=== PATIENT | male | born 1975 | race Hispanic/Latino ===

== ENCOUNTER 2017-03-13 20:03 | Inpatient (IN) | payer OTHER, MEDICARE ==
[~2017-03-13] VITALS: Ht 170.2 cm; Wt 68.9 kg
[~2017-03-13 20:03] MED LIST: ABAC1TAB15 PO; ALPR-412 PO; LISI2.5T2 PO; MECL-129 PO; METF850T2 PO; ONDA8TAB12 PO; OXYC30TA89 PO; PANT40TA25 PO; PROC10TA13 PO; [UNRECOGNIZED DRUG - CODE] TD
[2017-03-13] MEDS ORDERED: ONDANSETRON HCL 4 MG/2 ML VIAL ONE ×2 (20:21→23:48)
[2017-03-13 20:40] LABS: APPEARANCE,URINE Clear (CLEAR); BILIRUBIN,URINE Negative (NEGATIVE); COLOR,URINE Yellow (YELLOW); GLUCOSE, URINE (UA) Negative (NEGATIVE); KETONES,URINE Negative (NEGATIVE); LEUKOCYTE ESTERASE ,URINE Negative (NEGATIVE); NITRATE,URINE Negative (NEGATIVE); OCCULT BLOOD,URINE Trace (NEGATIVE); PROTEIN,URINE Negative (NEGATIVE); UROBILINOGEN,URINE 0.2 mg/dL (0.2-1.0)
[2017-03-13 20:45] LABS: AMPHET/METH SCREEN,URINE NEGATIVE (NEGATIVE); BARBITURATE SCREEN, URINE NEGATIVE (NEGATIVE); BENZODIAZEPINES SCREEN,URINE NEGATIVE (NEGATIVE); CANNABINOID SCREEN,URINE NEGATIVE (NEGATIVE); COCAINE SCREEN,URINE NEGATIVE (NEGATIVE); OPIATE SCREEN,URINE NEGATIVE (NEGATIVE); PHENCYCLIDINE SCREEN,URINE NEGATIVE (NEGATIVE)
[2017-03-13 20:51] LABS: MEAN CORPUSCULAR HEMOGLOBIN 35.2 pg (27.0-33.0); MEAN CORPUSCULAR HGB CONC 36.7 g/dL (32.0-36.0); MEAN CORPUSCULAR VOLUME 95.7 fL (79-99); NUCLEATED RED BLOOD CELLS 0.3 % (0.0-0.19); PLATELET COUNT (AUTO) 29 K/uL (130-400); RED CELL DISTRIBUTION WIDTH 14.4 % (11.0-15.5); WHITE BLOOD COUNT (AUTO) 1.4 K/uL (4.8-10.8)
[2017-03-13 20:59] LABS: CARBON DIOXIDE 29 mmol/L (21-32); CHLORIDE 102 mmol/L (101-111); CREATININE 1.6 mg/dL (0.5-1.5); GLOMERULAR FILTR. RATE CALC 51 mL/min (>60); GLUCOSE,RANDOM 103 mg/dL (70-105); POTASSIUM 3.5 mmol/L (3.5-5.1); SODIUM SERUM 139 mmol/L (136-145); UREA NITROGEN, BLOOD 10 mg/dL (7-18)
[2017-03-13 21:01] LABS: INR 1.09 (0.85-1.15); PARTIAL THROMBOPLASTIN TIME 36.6 SEC (26.3-35.5); PROTHROMBIN TIME 11.4 SEC (9.6-11.6)
[2017-03-13 21:12] LABS: ALANINE AMINOTRANSFERASE 34 U/L (12-78); ALBUMIN 2.8 g/dL (3.5-5.0); ASPARTATE AMINOTRANSFERASE 20 U/L (10-37); BILIRUBIN,TOTAL 0.8 mg/dL (0.2-1.0); CREATINE KINASE MB < 0.5 ng/mL (0.5-3.6); CREATINE KINASE, TOTAL 15 U/L (21-232); LIPASE 162 U/L (114-286); TOTAL PROTEIN, SERUM 5.9 g/dL (6.0-8.3)
[2017-03-13 21:18] LABS: HEMATOCRIT 19.2 % (42-54)
[2017-03-13 21:27] LABS: LYMPHOCYTES % (MANUAL) 26 % (22-44); MAN.DIFF COMMENT-IMPRESSION MANUAL DIFFERENTIAL; MONOCYTES % (MANUAL) 20 % (2-9); REACTIVE LYMPHOCYTES 1 % (0-0); SEGMENTED NEUTROPHILS % 53 % (40-70)
[2017-03-13 21:28] LABS: PLATELET MORPHOLOGY COMMENT MARKED DECREASED
[2017-03-13 21:50] LABS: BACTERIA,URINE Few /HPF (None Seen)
[2017-03-13] MEDS ORDERED: SODIUM CHLORIDE 0.9% 1000ML 1,000 ML IV ONE ×2 (22:09→23:48)
[2017-03-13] MEDS ORDERED: TRAMADOL HCL 50 MG TABLET ONE (22:36)
[2017-03-13] MEDS ORDERED: METRONIDAZOLE 500 MG TABLET ONE (23:06)
[2017-03-14 00:08] VITALS: BP 121/74
[2017-03-14] MEDS ORDERED: VALA500T38 PO (00:44)
[2017-03-14] MEDS: SODIUM CHLORIDE 0.9% 1000ML 1,000 ML IV SCH ×3 (00:59→21:05)
[2017-03-14] MEDS: METRONIDAZOLE 500MG/100ML BAG 100 ML IV SCH ×3 (01:00→21:38)
[2017-03-14] MEDS ORDERED: HYDROMORPHONE HCL 2 MG/ML VIAL IVP PRN (02:15)
[2017-03-14] MEDS ORDERED: HYDRALAZINE HCL 20 MG/ML VIAL IV PRN (02:15)
[2017-03-14] MEDS ORDERED: MECLIZINE HCL 25 MG TABLET PO PRN (02:30)
[2017-03-14] MEDS ORDERED: NON-FORMULARY MEDICATION 1 EACH (Fentanyl 1 EACH) TD SCH (02:30)
[2017-03-14] MEDS ORDERED: ALPRAZOLAM 1 MG TAB PO PRN (02:30)
[2017-03-14] MEDS ORDERED: HYDROMORPHONE 1 MG/1 ML AMP ONE (02:30)
[2017-03-14] MEDS ORDERED: Prochlorperazine Maleate 10 MG PO PRN (02:30)
[2017-03-14 04:00] VITALS: BP 111/68
[2017-03-14 05:05] LABS: BASOPHILS % (AUTO) 0.7 % (0.0-5.0); LYMPHOCYTES % (AUTO) 27.4 % (21.0-51.0); MEAN CORPUSCULAR HEMOGLOBIN 35.4 pg (27.0-33.0); MEAN CORPUSCULAR HGB CONC 36.7 g/dL (32.0-36.0); MEAN CORPUSCULAR VOLUME 96.5 fL (79-99); MONOCYTES % (AUTO) 29.6 % (3.0-13.0); NEUTROPHILS % (AUTO) 42.3 % (40.0-77.0); NUCLEATED RED BLOOD CELLS 0.3 % (0.0-0.19); PLATELET COUNT (AUTO) 26 K/uL (130-400); RED BLOOD CELL COUNT(AUTO) 1.67 MIL/uL (4.50-6.20); RED CELL DISTRIBUTION WIDTH 14.4 % (11.0-15.5)
[2017-03-14 05:08] LABS: HEMATOCRIT 16.1 % (42-54)
[2017-03-14] MEDS ORDERED: SODIUM CHLORIDE 0.9% 250 ML IV ONE (05:13)
[2017-03-14 05:21] LABS: CREATININE 1.5 mg/dL (0.5-1.5); POTASSIUM 3.4 mmol/L (3.5-5.1)
[2017-03-14 07:30] VITALS: BP 123/74
[2017-03-14] MEDS: PANTOPRAZOLE SODIUM 40 MG TABLET.DR PO SCH (08:19)
[2017-03-14] MEDS: VALACYCLOVIR HCL 500 MG TABLET PO SCH (08:19)
[2017-03-14] MEDS: HYDROMORPHONE 1 MG/1 ML AMP IVP PRN ×2 (08:20→14:08)
[2017-03-14] MEDS: ONDANSETRON HCL 4 MG/2 ML VIAL IVP PRN ×2 (08:37→13:58)
[2017-03-14] MEDS: LISINOPRIL 2.5 MG TABLET PO SCH (08:37)
[2017-03-14] MEDS: ONDANSETRON ODT 4 MG TAB PO SCH (09:00)
[2017-03-14] MEDS: TRIUMEQ PO SCH (09:00)
[2017-03-14 11:00] VITALS: BP 122/74
[2017-03-14] MEDS ORDERED: POTASSIUM CHLORIDE 10% ELIXIR 20 MEQ/15 ML UDCUP PO PRN (11:30)
[2017-03-14] MEDS ORDERED: LIDOCAINE HCL-MPF 1% 2ML VIAL IVP PRN (11:30)
[2017-03-14] MEDS ORDERED: POTASSIUM CHLORIDE 20MEQ/100ML 100 ML IV PRN (11:30)
[2017-03-14] MEDS: FENTANYL 100 MCG/HR PATCH TD SCH (13:59)
[2017-03-14 16:00] VITALS: BP 114/72
[2017-03-14 19:32] LABS: OCCULT BLOOD STOOL SINGLE ONLY NEGATIVE (NEGATIVE)
[2017-03-14 20:00] VITALS: BP 122/75
[2017-03-14 20:29] LABS: HEMATOCRIT 25.8 % (42-54)
[2017-03-14] MEDS: HYDROMORPHONE HCL 2 MG/ML VIAL IVP PRN (20:34)
[2017-03-15] VITALS: BP 113/75
[2017-03-15] MEDS: HYDROMORPHONE HCL 2 MG/ML VIAL IVP PRN ×4 (02:30→20:30)
[2017-03-15 04:00] VITALS: BP 132/78
[2017-03-15] MEDS: SODIUM CHLORIDE 0.9% 1000ML 1,000 ML IV SCH ×2 (04:02→18:39)
[2017-03-15 05:07] LABS: HEMATOCRIT 27.9 % (42-54); MEAN CORPUSCULAR HEMOGLOBIN 31.7 pg (27.0-33.0); MEAN CORPUSCULAR HGB CONC 35.3 g/dL (32.0-36.0); MEAN CORPUSCULAR VOLUME 89.9 fL (79-99); NUCLEATED RED BLOOD CELLS 0.4 % (0.0-0.19); PLATELET COUNT (AUTO) 23 K/uL (130-400); WHITE BLOOD COUNT (AUTO) 1.4 K/uL (4.8-10.8)
[2017-03-15 05:21] LABS: CREATININE 1.7 mg/dL (0.5-1.5); MAGNESIUM 1.1 mg/dL (1.80-2.40); POTASSIUM 3.9 mmol/L (3.5-5.1)
[2017-03-15] MEDS: METRONIDAZOLE 500MG/100ML BAG 100 ML IV SCH ×3 (05:37→22:04)
[2017-03-15 05:46] LABS: LYMPHOCYTES % (MANUAL) 35 % (22-44); MAN.DIFF COMMENT-IMPRESSION MANUAL DIFFERENTIAL; MONOCYTES % (MANUAL) 4 % (2-9); PLATELET MORPHOLOGY COMMENT DECREASED; SEGMENTED NEUTROPHILS % 61 % (40-70)
[2017-03-15 07:30] VITALS: BP 125/76
[2017-03-15] MEDS: ONDANSETRON HCL 4 MG/2 ML VIAL IVP PRN ×2 (08:05→20:36)
[2017-03-15] MEDS: VALACYCLOVIR HCL 500 MG TABLET PO SCH (08:05)
[2017-03-15] MEDS: TRIUMEQ PO SCH (08:06)
[2017-03-15] MEDS: LISINOPRIL 2.5 MG TABLET PO SCH (08:06)
[2017-03-15] MEDS: PANTOPRAZOLE SODIUM 40 MG TABLET.DR PO SCH (08:06)
[2017-03-15] MEDS: ONDANSETRON ODT 4 MG TAB PO SCH (08:14)
[2017-03-15] MEDS ORDERED: TBO-FILGRASTIM 480 MCG/0.8 ML ML SQ SCH (09:00)
[2017-03-15 11:00] VITALS: BP 120/75
[2017-03-15] MEDS: LEVOFLOXACIN 500 MG TABLET PO SCH (11:49)
[2017-03-15] MEDS: MAGNESIUM 2GM PREMIX 50ML 50 ML IV SCH (11:50)
[2017-03-15 16:00] VITALS: BP 124/73
[2017-03-15 20:00] VITALS: BP 128/74
[2017-03-16] VITALS: BP 124/78
[2017-03-16] MEDS: HYDROMORPHONE HCL 2 MG/ML VIAL IVP PRN ×5 (02:41→23:05)
[2017-03-16] MEDS: ONDANSETRON HCL 4 MG/2 ML VIAL IVP PRN ×4 (02:41→23:05)
[2017-03-16] MEDS: SODIUM CHLORIDE 0.9% 1000ML 1,000 ML IV SCH ×2 (02:43→14:26)
[2017-03-16 04:00] VITALS: BP 112/65
[2017-03-16 05:36] LABS: BASOPHILS % (AUTO) 0.2 % (0.0-5.0); EOSINOPHILS % (AUTO) 0.1 % (0.0-8.0); HEMATOCRIT 24.6 % (42-54); LYMPHOCYTES % (AUTO) 15.2 % (21.0-51.0); MEAN CORPUSCULAR HEMOGLOBIN 33.1 pg (27.0-33.0); MEAN CORPUSCULAR HGB CONC 36.5 g/dL (32.0-36.0); MEAN CORPUSCULAR VOLUME 90.8 fL (79-99); MONOCYTES % (AUTO) 22.7 % (3.0-13.0); NEUTROPHILS % (AUTO) 61.8 % (40.0-77.0); NUCLEATED RED BLOOD CELLS 0.2 % (0.0-0.19); PLATELET COUNT (AUTO) 23 K/uL (130-400); RED BLOOD CELL COUNT(AUTO) 2.71 MIL/uL (4.50-6.20); RED CELL DISTRIBUTION WIDTH 17.2 % (11.0-15.5); WHITE BLOOD COUNT (AUTO) 3.1 K/uL (4.8-10.8)
[2017-03-16] MEDS: METRONIDAZOLE 500MG/100ML BAG 100 ML IV SCH ×3 (05:47→21:34)
[2017-03-16 05:48] LABS: ALBUMIN 2.4 g/dL (3.5-5.0); BILIRUBIN,TOTAL 0.9 mg/dL (0.2-1.0); CREATININE 1.6 mg/dL (0.5-1.5); MAGNESIUM 1.3 mg/dL (1.80-2.40); POTASSIUM 3.6 mmol/L (3.5-5.1); TOTAL PROTEIN, SERUM 5.1 g/dL (6.0-8.3)
[2017-03-16] MEDS: POTASSIUM CHLORIDE 20 MEQ ERTAB PO PRN (06:14)
[2017-03-16] MEDS: MAGNESIUM 2GM PREMIX 50ML 50 ML IV SCH (06:15)
[2017-03-16 07:30] VITALS: BP 115/74
[2017-03-16] MEDS: TRIUMEQ PO SCH (09:00)
[2017-03-16] MEDS: LEVOFLOXACIN 500 MG TABLET PO SCH (09:40)
[2017-03-16] MEDS: PANTOPRAZOLE SODIUM 40 MG TABLET.DR PO SCH (09:41)
[2017-03-16] MEDS: LISINOPRIL 2.5 MG TABLET PO SCH (09:41)
[2017-03-16] MEDS: VALACYCLOVIR HCL 500 MG TABLET PO SCH (09:42)
[2017-03-16 11:00] VITALS: BP 112/69
[2017-03-16] MEDS ORDERED: METR500T PO (13:18)
[2017-03-16] MEDS ORDERED: LEVO500T2 PO (13:18)
[2017-03-16] MEDS: ONDANSETRON ODT 4 MG TAB PO SCH (14:25)
[2017-03-16 16:00] VITALS: BP 110/68
[2017-03-16 20:00] VITALS: BP 124/73
[2017-03-17] VITALS: BP 120/57
[2017-03-17] MEDS: SODIUM CHLORIDE 0.9% 1000ML 1,000 ML IV SCH ×2 (03:31→13:20)
[2017-03-17] MEDS: HYDROMORPHONE HCL 2 MG/ML VIAL IVP PRN ×3 (03:35→13:15)
[2017-03-17 03:59] VITALS: BP 110/70
[2017-03-17] MEDS: METRONIDAZOLE 500MG/100ML BAG 100 ML IV SCH ×2 (05:19→13:14)
[2017-03-17 07:18] VITALS: BP 124/74
[2017-03-17] MEDS: ONDANSETRON ODT 4 MG TAB PO SCH (08:41)
[2017-03-17] MEDS: LISINOPRIL 2.5 MG TABLET PO SCH (08:41)
[2017-03-17] MEDS: VALACYCLOVIR HCL 500 MG TABLET PO SCH (08:41)
[2017-03-17] MEDS: LEVOFLOXACIN 500 MG TABLET PO SCH (08:41)
[2017-03-17] MEDS: PANTOPRAZOLE SODIUM 40 MG TABLET.DR PO SCH (08:42)
[2017-03-17] MEDS: TRIUMEQ PO SCH (08:42)
[2017-03-17 10:52] VITALS: BP 109/66
[2017-03-17] MEDS ORDERED: HEPARIN SODIUM/PF 100UNIT/ML 5ML SYRINGE IV SCH (11:45)
[2017-03-17] MEDS: POTASSIUM CHLORIDE 20 MEQ ERTAB PO PRN ×2 (12:25→15:16)
[2017-03-17] MEDS: ONDANSETRON HCL 4 MG/2 ML VIAL IVP PRN (13:15)
[2017-03-17] MEDS: FENTANYL 100 MCG/HR PATCH TD SCH (15:15)
== END 2017-03-17 16:00 | disposition home or self-care (01) | DRG 977 ==
LOC: EDH 20:03 → EDHIP 23:04 → 4BH 23:52
PROVIDERS: ADMIT Family Medicine; ATTEND Family Medicine
PROC: 30233N1 Transfusion of Nonautologous Red Blood Cells into Peripheral Vein, Percutaneous Approach (ICD-10-PCS; principal; 2017-03-14)
DX: A09 Infectious gastroenteritis and colitis, unspecified (principal); B20 Human immunodeficiency virus [HIV] disease; N19 Unspecified kidney failure; Z94.81 Bone marrow transplant status; C81.90 Hodgkin lymphoma, unspecified, unspecified site; Z94.84 Stem cells transplant status; I10 Essential (primary) hypertension; G89.29 Other chronic pain; T45.1X5A Adverse effect of antineoplastic and immunosuppressive drugs, initial encounter; Z90.49 Acquired absence of other specified parts of digestive tract; R16.1 Splenomegaly, not elsewhere classified; Z28.21 Immunization not carried out because of patient refusal
CPT/HCPCS: 36415; 36430; 80048; 80053; 80305; 81001; 82270; 82550; 82553; 83690; 83735; 84484; 85025; 85610; 85730; 86850; 86900; 86901; 86922; 87046; 87177; 87205; 87324; 87804; 88313; J1170; J1642; J2405; J3475; J3480; J3490; J7030; P9016

== ENCOUNTER 2017-05-18 20:24 | Emergency (ER) | payer OTHER, MEDICARE ==
[~2017-05-18 20:24] MED LIST changes: +LEVO500T2 PO; -METF850T2 PO; +METR500T PO; +VALA500T38 PO
[2017-05-18 21:00] LABS: BASOPHILS % (AUTO) 0.2 % (0.0-5.0); EOSINOPHILS % (AUTO) 1.6 % (0.0-8.0); HEMATOCRIT 27.2 % (42-54); LYMPHOCYTES % (AUTO) 36.3 % (21.0-51.0); MEAN CORPUSCULAR HEMOGLOBIN 35.8 pg (27.0-33.0); MEAN CORPUSCULAR HGB CONC 36.5 g/dL (32.0-36.0); MONOCYTES % (AUTO) 6.9 % (3.0-13.0); PLATELET COUNT (AUTO) 67 K/uL (130-400); RED BLOOD CELL COUNT(AUTO) 2.78 MIL/uL (4.50-6.20); WHITE BLOOD COUNT (AUTO) 7.2 K/uL (4.8-10.8)
[2017-05-18] MEDS ORDERED: ONDANSETRON ODT 4 MG TAB ONE (21:04)
[2017-05-18] MEDS ORDERED: SODIUM CHLORIDE 0.9% 1000ML 1,000 ML IV ONE (21:04)
[2017-05-18 21:12] LABS: CREATININE 2.5 mg/dL (0.5-1.5); POTASSIUM 3.1 mmol/L (3.5-5.1)
[2017-05-18 21:17] LABS: ALBUMIN 3.9 g/dL (3.5-5.0); BILIRUBIN,TOTAL 0.7 mg/dL (0.2-1.0); TOTAL PROTEIN, SERUM 7.4 g/dL (6.0-8.3)
[2017-05-18 21:19] LABS: APPEARANCE,URINE Clear (CLEAR); BILIRUBIN,URINE Negative (NEGATIVE); COLOR,URINE Yellow (YELLOW); GLUCOSE, URINE (UA) Negative (NEGATIVE); KETONES,URINE Negative (NEGATIVE); LEUKOCYTE ESTERASE ,URINE Trace (NEGATIVE); NITRATE,URINE Negative (NEGATIVE); OCCULT BLOOD,URINE Negative (NEGATIVE); PROTEIN,URINE Negative (NEGATIVE)
[2017-05-18 21:33] LABS: RBC,URINE 0-1 /HPF (0-1); WBC,URINE 0-1 /HPF (0-1)
[2017-05-18 21:34] LABS: BACTERIA,URINE Rare /HPF (None Seen); SQUAMOUS EPITHELIAL CELL,UR Few /LPF (0-2)
[2017-05-18] MEDS ORDERED: WATER FOR INJECTION,STERILE 20 ML VIAL ONE (22:34)
[2017-05-18] MEDS ORDERED: CEFTRIAXONE SODIUM 1 GM ONE (22:34)
[2017-05-18] MEDS ORDERED: POTASSIUM BICARB/CIT AC 25 MEQ TABLET.EFF ONE (23:14)
== END 2017-05-18 23:28 | disposition home or self-care (01) ==
LOC: EDH 20:24
DX: E87.6 Hypokalemia (principal); J18.9 Pneumonia, unspecified organism; D64.9 Anemia, unspecified; E11.9 Type 2 diabetes mellitus without complications; I10 Essential (primary) hypertension; Z88.6 Allergy status to analgesic agent; Z88.1 Allergy status to other antibiotic agents; Z85.72 Personal history of non-Hodgkin lymphomas; Z21 Asymptomatic human immunodeficiency virus [HIV] infection status
CPT/HCPCS: 36415; 71046; 80053; 81001; 85025; 87040 ×2; 87804 ×2; 96361; 96374; 99285; J0696; J7030

== ENCOUNTER 2018-04-09 01:20 | Inpatient (IN) | payer OTHER, MEDICARE ==
[~2018-04-09] VITALS: Ht 170.2 cm; Wt 74.4 kg
[~2018-04-09 01:20] MED LIST changes: -ABAC1TAB15 PO; +DARU1TAB PO; +DOLU50TA PO; -LEVO500T2 PO; -LISI2.5T2 PO; -MECL-129 PO; -METR500T PO; -VALA500T38 PO
[2018-04-09] MEDS ORDERED: ONDANSETRON HCL 4 MG/2 ML VIAL ONE (01:52)
[2018-04-09 01:59] LABS: BASOPHILS % (AUTO) 1.5 % (0.0-5.0); EOSINOPHILS % (AUTO) 1.6 % (0.0-8.0); HEMATOCRIT 34.7 % (42-54); LYMPHOCYTES % (AUTO) 6.4 % (21.0-51.0); MEAN CORPUSCULAR HEMOGLOBIN 33.6 pg (27.0-33.0); MEAN CORPUSCULAR HGB CONC 33.6 g/dL (32.0-36.0); MEAN CORPUSCULAR VOLUME 100.1 fL (79-99); MONOCYTES % (AUTO) 5.6 % (3.0-13.0); NEUTROPHILS % (AUTO) 84.9 % (40.0-77.0); PLATELET COUNT (AUTO) 106 K/uL (130-400); RED BLOOD CELL COUNT(AUTO) 3.47 MIL/uL (4.50-6.20); RED CELL DISTRIBUTION WIDTH 17.5 % (11.0-15.5); WHITE BLOOD COUNT (AUTO) 7.4 K/uL (4.8-10.8)
[2018-04-09 02:06] LABS: CARBON DIOXIDE 23 mmol/L (21-32); CHLORIDE 107 mmol/L (101-111); CREATININE 2.2 mg/dL (0.5-1.5); GLOMERULAR FILTR. RATE CALC 35 mL/min (>60); GLUCOSE,RANDOM 163 mg/dL (70-105); POTASSIUM 4.3 mmol/L (3.5-5.1); SODIUM SERUM 143 mmol/L (136-145); UREA NITROGEN, BLOOD 33 mg/dL (7-18)
[2018-04-09 02:06] LABS: APPEARANCE,URINE Clear (CLEAR); BILIRUBIN,URINE Negative (NEGATIVE); COLOR,URINE Yellow (YELLOW); GLUCOSE, URINE (UA) Negative (NEGATIVE); KETONES,URINE Negative (NEGATIVE); LEUKOCYTE ESTERASE ,URINE Negative (NEGATIVE); NITRATE,URINE Negative (NEGATIVE); OCCULT BLOOD,URINE Negative (NEGATIVE); PROTEIN,URINE Negative (NEGATIVE)
[2018-04-09 02:11] LABS: PARTIAL THROMBOPLASTIN TIME 29.4 SEC (26.3-35.5); PROTHROMBIN TIME 10.5 SEC (9.6-11.6)
[2018-04-09 02:17] LABS: ALANINE AMINOTRANSFERASE 35 U/L (12-78); ALBUMIN 3.8 g/dL (3.5-5.0); ASPARTATE AMINOTRANSFERASE 24 U/L (10-37); BILIRUBIN,TOTAL 0.6 mg/dL (0.2-1.0); CREATINE KINASE, TOTAL 27 U/L (21-232); MYOGLOBIN 31 ng/mL (10-92); TOTAL PROTEIN, SERUM 6.7 g/dL (6.0-8.3); TROPONIN I < 0.04 ng/mL (0.00-0.06)
[2018-04-09] MEDS ORDERED: ZOSYN 3.375GM+NS 50ML 50 ML IV ONE (02:33)
[2018-04-09] MEDS ORDERED: ACETAMINOPHEN EXTRA STRENGTH 500 MG TABLET ONE (02:33)
[2018-04-09] MEDS ORDERED: FENTANYL CITRATE PF 50 MCG/1 ML 2ML VIAL ONE (03:35)
[2018-04-09] MEDS ORDERED: METOCLOPRAMIDE 10 MG/2 ML VIAL ONE (04:43)
[2018-04-09] MEDS ORDERED: SODIUM CHLORIDE 0.9% 1000ML 1,000 ML IV ONE (08:16)
[2018-04-09] MEDS ORDERED: HYDROMORPHONE 1 MG/1 ML AMP ONE (12:05)
[2018-04-09 13:45] VITALS: BP 141/87
[2018-04-09] MEDS: ZOSYN 3.375GM+NS 50ML 50 ML IV SCH ×2 (14:58→21:41)
[2018-04-09] MEDS ORDERED: GABA-531 PO (15:05)
[2018-04-09] MEDS ORDERED: ATOR10 PO (15:05)
[2018-04-09] MEDS ORDERED: ALLO300T2 PO (15:05)
[2018-04-09] MEDS ORDERED: FENT-77 TD (15:17)
[2018-04-09] MEDS ORDERED: ONDA8TAB5 PO (15:17)
[2018-04-09] MEDS ORDERED: ONDANSETRON 4 MG TABLET PO PRN (15:30)
[2018-04-09] MEDS ORDERED: HYDROMORPHONE HCL 2 MG/ML VIAL IVP PRN (15:30)
[2018-04-09] MEDS ORDERED: NON-FORMULARY MEDICATION 1 EACH (Fentanyl 1 EACH) TD SCH (15:30)
[2018-04-09 16:00] VITALS: BP 139/82
[2018-04-09] MEDS: HYDROMORPHONE 1 MG/1 ML AMP IVP PRN ×2 (17:06→21:50)
[2018-04-09] MEDS: GABAPENTIN 300 MG CAPSULE PO SCH (17:14)
[2018-04-09] MEDS: SODIUM CHLORIDE 0.9% 1000ML 1,000 ML IV SCH (17:16)
[2018-04-09 19:25] VITALS: BP 105/64
[2018-04-09] MEDS: FENTANYL 100 MCG/HR PATCH TD PRN (19:59)
[2018-04-09] MEDS: ATORVASTATIN CALCIUM 20 MG TABLET PO SCH (21:41)
[2018-04-09] MEDS: ONDANSETRON HCL 4 MG/2 ML VIAL IVP PRN (21:44)
[2018-04-09 23:35] VITALS: BP 116/72
[2018-04-10] MEDS: OXYCODONE HCL 30 MG TABLET PO PRN ×4 (00:07→22:31)
[2018-04-10] MEDS: SODIUM CHLORIDE 0.9% 1000ML 1,000 ML IV SCH ×3 (00:44→22:32)
[2018-04-10] MEDS ORDERED: DiphenhydrAMINE HCL 50 MG/ML VIAL ONE (00:57)
[2018-04-10 03:00] VITALS: BP 150/81
[2018-04-10] MEDS: ZOSYN 3.375GM+NS 50ML 50 ML IV SCH ×3 (05:03→21:15)
[2018-04-10] MEDS: HYDROMORPHONE 1 MG/1 ML AMP IVP PRN ×5 (05:11→23:42)
[2018-04-10] MEDS: DiphenhydrAMINE HCL 50 MG/ML VIAL IV PRN ×3 (07:09→21:16)
[2018-04-10 08:00] VITALS: BP 114/74
[2018-04-10] MEDS: DARUNAVIR PO SCH (08:00)
[2018-04-10] MEDS: COBICISTAT PO SCH (08:00)
[2018-04-10] MEDS: **HM**(Dolutegravir Sodium (Tivicay) 50 MG PO SCH (08:06)
[2018-04-10] MEDS: PANTOPRAZOLE SODIUM 40 MG TABLET.DR PO SCH (08:06)
[2018-04-10] MEDS: GABAPENTIN 300 MG CAPSULE PO SCH ×3 (08:06→17:12)
[2018-04-10] MEDS ORDERED: PROCHLORPERAZINE MALEATE 10 MG PO PRN (09:00)
[2018-04-10] MEDS ORDERED: ONDANSETRON 8 MG PO SCH (09:00)
[2018-04-10] MEDS: ONDANSETRON HCL 4 MG/2 ML VIAL IVP PRN (09:49)
[2018-04-10] MEDS: ALLOPURINOL 300 MG TABLET PO SCH (09:52)
[2018-04-10 12:00] VITALS: BP 102/69
[2018-04-10 16:00] VITALS: BP 110/70
[2018-04-10 19:45] VITALS: BP 111/73
[2018-04-10] MEDS: ATORVASTATIN CALCIUM 20 MG TABLET PO SCH (21:15)
[2018-04-10 23:35] VITALS: BP 132/78
[2018-04-11 03:00] VITALS: BP 120/74
[2018-04-11] MEDS: DiphenhydrAMINE HCL 50 MG/ML VIAL IV PRN ×4 (03:22→23:25)
[2018-04-11] MEDS: OXYCODONE HCL 30 MG TABLET PO PRN ×2 (03:27→12:33)
[2018-04-11] MEDS: ZOSYN 3.375GM+NS 50ML 50 ML IV SCH ×3 (04:44→21:02)
[2018-04-11] MEDS: HYDROMORPHONE 1 MG/1 ML AMP IVP PRN ×5 (06:16→22:35)
[2018-04-11] MEDS: SODIUM CHLORIDE 0.9% 1000ML 1,000 ML IV SCH ×3 (07:00→23:26)
[2018-04-11] MEDS: COBICISTAT PO SCH (07:47)
[2018-04-11] MEDS: DARUNAVIR PO SCH (07:47)
[2018-04-11] MEDS: **HM**(Dolutegravir Sodium (Tivicay) 50 MG PO SCH (07:47)
[2018-04-11 08:34] VITALS: BP 102/67
[2018-04-11] MEDS: GABAPENTIN 300 MG CAPSULE PO SCH ×3 (09:38→17:06)
[2018-04-11] MEDS: PANTOPRAZOLE SODIUM 40 MG TABLET.DR PO SCH (09:38)
[2018-04-11] MEDS: VALACYCLOVIR HCL 500 MG TABLET PO SCH ×3 (09:38→21:02)
[2018-04-11] MEDS: ALLOPURINOL 300 MG TABLET PO SCH (09:38)
[2018-04-11] MEDS: ONDANSETRON HCL 4 MG/2 ML VIAL IVP PRN (09:42)
[2018-04-11 12:04] VITALS: BP 116/73
[2018-04-11 15:49] VITALS: BP 101/63
[2018-04-11] MEDS: ALPRAZOLAM 1 MG TAB PO PRN (17:13)
[2018-04-11 19:40] VITALS: BP 111/74
[2018-04-11] MEDS: ATORVASTATIN CALCIUM 20 MG TABLET PO SCH (21:02)
[2018-04-11 23:40] VITALS: BP 132/89
[2018-04-12] MEDS: SODIUM CHLORIDE 0.9% 1000ML 1,000 ML IV SCH ×4 (02:26→22:02)
[2018-04-12] MEDS: HYDROMORPHONE 1 MG/1 ML AMP IVP PRN ×6 (03:17→23:52)
[2018-04-12 03:40] VITALS: BP 103/67
[2018-04-12] MEDS: ZOSYN 3.375GM+NS 50ML 50 ML IV SCH ×3 (03:57→21:42)
[2018-04-12] MEDS: DiphenhydrAMINE HCL 50 MG/ML VIAL IV PRN ×4 (05:59→23:51)
[2018-04-12 07:00] VITALS: BP 119/72
[2018-04-12] MEDS: ONDANSETRON HCL 4 MG/2 ML VIAL IVP PRN ×2 (07:31→19:55)
[2018-04-12] MEDS: COBICISTAT PO SCH (08:00)
[2018-04-12] MEDS: DARUNAVIR PO SCH (08:00)
[2018-04-12] MEDS: GABAPENTIN 300 MG CAPSULE PO SCH ×3 (08:45→18:14)
[2018-04-12] MEDS: PANTOPRAZOLE SODIUM 40 MG TABLET.DR PO SCH (08:45)
[2018-04-12] MEDS: ALLOPURINOL 300 MG TABLET PO SCH (08:46)
[2018-04-12] MEDS: VALACYCLOVIR HCL 500 MG TABLET PO SCH ×3 (08:46→21:42)
[2018-04-12] MEDS: **HM**(Dolutegravir Sodium (Tivicay) 50 MG PO SCH (08:49)
[2018-04-12] MEDS: OXYCODONE HCL 30 MG TABLET PO PRN ×3 (08:49→18:14)
[2018-04-12 11:00] VITALS: BP 103/65
[2018-04-12] MEDS: ALPRAZOLAM 1 MG TAB PO PRN ×2 (11:57→19:55)
[2018-04-12] MEDS: DIPHENOXYLATE HCL/ATROPINE 2.5/0.025 MG TAB PO PRN ×2 (13:34→16:17)
[2018-04-12 16:00] VITALS: BP 128/72
[2018-04-12] MEDS: FENTANYL 100 MCG/HR PATCH TD PRN (18:15)
[2018-04-12 19:20] VITALS: BP 131/91
[2018-04-12] MEDS: ATORVASTATIN CALCIUM 20 MG TABLET PO SCH (19:55)
[2018-04-13 00:27] VITALS: BP 116/73
[2018-04-13] MEDS: ZOSYN 3.375GM+NS 50ML 50 ML IV SCH ×3 (04:42→21:14)
[2018-04-13 04:47] VITALS: BP 122/88
[2018-04-13] MEDS: SODIUM CHLORIDE 0.9% 1000ML 1,000 ML IV SCH ×3 (05:43→21:15)
[2018-04-13 08:00] VITALS: BP 129/85
[2018-04-13] MEDS: DARUNAVIR PO SCH (08:00)
[2018-04-13] MEDS: COBICISTAT PO SCH (08:00)
[2018-04-13] MEDS: VALACYCLOVIR HCL 500 MG TABLET PO SCH ×3 (08:47→21:15)
[2018-04-13] MEDS: GABAPENTIN 300 MG CAPSULE PO SCH ×3 (08:47→17:58)
[2018-04-13] MEDS: ONDANSETRON HCL 4 MG/2 ML VIAL IVP PRN ×3 (08:47→20:29)
[2018-04-13] MEDS: ALLOPURINOL 300 MG TABLET PO SCH (08:47)
[2018-04-13] MEDS: PANTOPRAZOLE SODIUM 40 MG TABLET.DR PO SCH (08:47)
[2018-04-13] MEDS: HYDROMORPHONE 1 MG/1 ML AMP IVP PRN ×4 (08:48→21:23)
[2018-04-13] MEDS: **HM**(Dolutegravir Sodium (Tivicay) 50 MG PO SCH (09:00)
[2018-04-13 11:04] VITALS: BP 128/74
[2018-04-13] MEDS: DiphenhydrAMINE HCL 50 MG/ML VIAL IV PRN ×2 (11:10→21:16)
[2018-04-13] MEDS: OXYCODONE HCL 30 MG TABLET PO PRN ×2 (11:11→15:30)
[2018-04-13] MEDS: DIPHENOXYLATE HCL/ATROPINE 2.5/0.025 MG TAB PO PRN (11:11)
[2018-04-13 12:54] LABS: BASOPHILS % (AUTO) 1.8 % (0.0-5.0); LYMPHOCYTES % (AUTO) 21.2 % (21.0-51.0); MEAN CORPUSCULAR HEMOGLOBIN 34.2 pg (27.0-33.0); MEAN CORPUSCULAR VOLUME 100.5 fL (79-99); MONOCYTES % (AUTO) 4.7 % (3.0-13.0); NEUTROPHILS % (AUTO) 70.3 % (40.0-77.0); PLATELET COUNT (AUTO) 83 K/uL (130-400); RED BLOOD CELL COUNT(AUTO) 3.18 MIL/uL (4.50-6.20); RED CELL DISTRIBUTION WIDTH 16.8 % (11.0-15.5); WHITE BLOOD COUNT (AUTO) 5.8 K/uL (4.8-10.8)
[2018-04-13 16:47] VITALS: BP 129/73
[2018-04-13 20:00] VITALS: BP 163/99
[2018-04-13] MEDS: ATORVASTATIN CALCIUM 20 MG TABLET PO SCH (21:15)
[2018-04-14] VITALS: BP 115/70
[2018-04-14] MEDS: OXYCODONE HCL 30 MG TABLET PO PRN ×3 (00:10→13:39)
[2018-04-14] MEDS ORDERED: ACET-2247 PO (00:17)
[2018-04-14] MEDS ORDERED: ACETAMINOPHEN 325 MG TAB PO PRN (00:30)
[2018-04-14] MEDS ORDERED: ACETAMINOPHEN 325 MG TAB ONE (01:14)
[2018-04-14] MEDS: HYDROMORPHONE 1 MG/1 ML AMP IVP PRN ×4 (01:22→15:51)
[2018-04-14] MEDS: DiphenhydrAMINE HCL 50 MG/ML VIAL IV PRN ×2 (03:13→09:31)
[2018-04-14 04:00] VITALS: BP 119/80
[2018-04-14 04:10] VITALS: BP 142/87
[2018-04-14] MEDS: ZOSYN 3.375GM+NS 50ML 50 ML IV SCH ×2 (06:32→12:51)
[2018-04-14] MEDS: DIPHENOXYLATE HCL/ATROPINE 2.5/0.025 MG TAB PO PRN (07:23)
[2018-04-14 08:00] VITALS: BP 149/88
[2018-04-14] MEDS: COBICISTAT PO SCH (08:00)
[2018-04-14] MEDS: DARUNAVIR PO SCH (08:00)
[2018-04-14] MEDS: **HM**(Dolutegravir Sodium (Tivicay) 50 MG PO SCH (09:00)
[2018-04-14] MEDS: ALLOPURINOL 300 MG TABLET PO SCH (09:31)
[2018-04-14] MEDS: PANTOPRAZOLE SODIUM 40 MG TABLET.DR PO SCH (09:31)
[2018-04-14] MEDS: VALACYCLOVIR HCL 500 MG TABLET PO SCH ×2 (09:31→13:39)
[2018-04-14] MEDS: GABAPENTIN 300 MG CAPSULE PO SCH ×2 (09:31→11:29)
[2018-04-14] MEDS: SODIUM CHLORIDE 0.9% 1000ML 1,000 ML IV SCH (09:43)
[2018-04-14 12:00] VITALS: BP 117/72
[2018-04-14] MEDS: ONDANSETRON HCL 4 MG/2 ML VIAL IVP PRN (12:51)
[2018-04-14 16:00] VITALS: BP 140/91
[2018-04-14] MEDS ORDERED: HEPARIN SODIUM/PF 100UNIT/ML 5ML SYRINGE IV SCH (18:45)
== END 2018-04-14 19:00 | disposition home or self-care (01) | DRG 976 ==
LOC: EDH 01:20 → OBSVTOIN 04:40 → EDHIP 04:40 → 3CH 14:24 → 3AH 04-13 09:08
PROVIDERS: ADMIT Internal Medicine Hematology & Oncology; ATTEND Internal Medicine Hematology & Oncology
DX: B20 Human immunodeficiency virus [HIV] disease (principal); A41.9 Sepsis, unspecified organism; C85.90 Non-Hodgkin lymphoma, unspecified, unspecified site; K52.9 Noninfective gastroenteritis and colitis, unspecified; I10 Essential (primary) hypertension
CPT/HCPCS: 36415; 71045; 74176; 80053; 81003; 82550; 83605; 83690; 83874; 84484; 85025; 85610; 85730; 87040; 87088; 87804; 93005; G0378; J1170; J1200; J1642; J2405; J2543; J2765; J3010; J7030

== ENCOUNTER 2018-04-21 21:54 | Emergency (ER) | payer OTHER, MEDICARE ==
[~2018-04-21 21:54] MED LIST changes: +ACET-2247 PO; +ALLO300T2 PO; +ATOR10 PO; +FENT-77 TD; +GABA-531 PO; +ONDA8TAB5 PO
[2018-04-21 23:28] LABS: BASOPHILS % (AUTO) 0.5 % (0.0-5.0); EOSINOPHILS % (AUTO) 1.6 % (0.0-8.0); HEMATOCRIT 32.5 % (42-54); LYMPHOCYTES % (AUTO) 11.6 % (21.0-51.0); MEAN CORPUSCULAR HEMOGLOBIN 34.2 pg (27.0-33.0); MEAN CORPUSCULAR HGB CONC 34.1 g/dL (32.0-36.0); MEAN CORPUSCULAR VOLUME 100.3 fL (79-99); MONOCYTES % (AUTO) 6.2 % (3.0-13.0); NEUTROPHILS % (AUTO) 80.1 % (40.0-77.0); PLATELET COUNT (AUTO) 114 K/uL (130-400); RED BLOOD CELL COUNT(AUTO) 3.24 MIL/uL (4.50-6.20); RED CELL DISTRIBUTION WIDTH 17.3 % (11.0-15.5); WHITE BLOOD COUNT (AUTO) 8.1 K/uL (4.8-10.8)
[2018-04-21] MEDS ORDERED: SODIUM CHLORIDE 0.9% 1000ML 1,000 ML IV ONE (23:28)
[2018-04-21 23:41] LABS: CREATININE 2.3 mg/dL (0.5-1.5); POTASSIUM 3.3 mmol/L (3.5-5.1)
[2018-04-21 23:45] LABS: ALBUMIN 3.9 g/dL (3.5-5.0); BILIRUBIN,TOTAL 0.6 mg/dL (0.2-1.0); TOTAL PROTEIN, SERUM 6.8 g/dL (6.0-8.3)
[2018-04-21 23:46] LABS: INR 0.99 (0.85-1.15); PARTIAL THROMBOPLASTIN TIME 28.8 SEC (26.3-35.5); PROTHROMBIN TIME 10.4 SEC (9.6-11.6)
[2018-04-21 23:50] LABS: RAPID GROUP A STREP NEGATIVE (NEGATIVE)
[2018-04-22 00:04] LABS: B-TYPE NATRIURETIC PEPTIDE 40 pg/mL (0-100)
[2018-04-22 00:13] LABS: APPEARANCE,URINE Clear (CLEAR); BILIRUBIN,URINE Negative (NEGATIVE); COLOR,URINE Yellow (YELLOW); GLUCOSE, URINE (UA) Negative (NEGATIVE); KETONES,URINE Negative (NEGATIVE); LEUKOCYTE ESTERASE ,URINE Negative (NEGATIVE); NITRATE,URINE Negative (NEGATIVE); OCCULT BLOOD,URINE Negative (NEGATIVE); PROTEIN,URINE Negative (NEGATIVE); UROBILINOGEN,URINE 0.2 mg/dL (0.2-1.0)
[2018-04-22] MEDS ORDERED: OSELTAMIVIR PHOSPHATE 75 MG CAP ONE (00:49)
[2018-04-23] MEDS ORDERED: PREN-64 PO (08:03)
[2018-04-23] MEDS ORDERED: ALPR2TAB7 PO (08:03)
[2018-04-23] MEDS ORDERED: VALA100027 PO (08:03)
[2018-04-23] MEDS ORDERED: TEMA15CA PO (08:03)
[2018-04-23] MEDS ORDERED: OSEL75CA17 PO (08:03)
[2018-04-23] MEDS ORDERED: DIPH25CA85 PO (15:52)
== END 2018-04-22 01:00 | disposition home or self-care (01) ==
LOC: EDH 21:54
DX: J10.1 Influenza due to other identified influenza virus with other respiratory manifestations (principal); R00.0 Tachycardia, unspecified; I10 Essential (primary) hypertension; E11.9 Type 2 diabetes mellitus without complications; Z90.49 Acquired absence of other specified parts of digestive tract; Z88.5 Allergy status to narcotic agent; Z88.6 Allergy status to analgesic agent; Z88.1 Allergy status to other antibiotic agents; Z94.81 Bone marrow transplant status
CPT/HCPCS: 36415; 71045; 80053; 81003; 83605; 83690; 83880; 84484; 85025; 85610; 85730; 87040 ×2; 87804 ×2; 87880; 93005; 99284; J7030

== ENCOUNTER 2018-10-27 04:16 | Emergency (ER) | payer OTHER, MEDICARE ==
[~2018-10-27 04:16] MED LIST changes: -ACET-2247 PO; -ALLO300T2 PO; -ALPR-412 PO; +ALPR2TAB7 PO; +BICT1TAB PO; -DARU1TAB PO; +DIPH25CA85 PO; -DOLU50TA PO; -ONDA8TAB12 PO; +PREN-64 PO; -PROC10TA13 PO; +RANI-643 PO; -[UNRECOGNIZED DRUG - CODE] TD
[2018-10-27 04:46] LABS: APPEARANCE,URINE Clear (CLEAR); BILIRUBIN,URINE Negative (NEGATIVE); COLOR,URINE Yellow (YELLOW); GLUCOSE, URINE (UA) Negative (NEGATIVE); KETONES,URINE Negative (NEGATIVE); LEUKOCYTE ESTERASE ,URINE Negative (NEGATIVE); NITRATE,URINE Negative (NEGATIVE); OCCULT BLOOD,URINE Negative (NEGATIVE); PH,URINE 5.5 (5.0-8.0); PROTEIN,URINE Negative (NEGATIVE)
[2018-10-27] MEDS ORDERED: SODIUM CHLORIDE 0.9% 1000ML 1,000 ML IV ONE (05:04)
[2018-10-27] MEDS ORDERED: ONDANSETRON HCL 4 MG/2 ML VIAL ONE (05:04)
[2018-10-27 05:08] LABS: HEMATOCRIT 29.7 % (42-54); LYMPHOCYTES % (AUTO) 8.8 % (21.0-51.0); MEAN CORPUSCULAR HEMOGLOBIN 33.3 pg (27.0-33.0); MEAN CORPUSCULAR VOLUME 100.8 fL (79-99); MONOCYTES % (AUTO) 3.5 % (3.0-13.0); NEUTROPHILS % (AUTO) 87.7 % (40.0-77.0); PLATELET COUNT (AUTO) 141 K/uL (130-400); RED BLOOD CELL COUNT(AUTO) 2.94 MIL/uL (4.50-6.20); RED CELL DISTRIBUTION WIDTH 16.5 % (11.0-15.5); WHITE BLOOD COUNT (AUTO) 11.3 K/uL (4.8-10.8)
[2018-10-27 05:19] LABS: CREATININE 2.1 mg/dL (0.5-1.5); POTASSIUM 4.5 mmol/L (3.5-5.1)
[2018-10-27 05:22] LABS: INR 1.02 (0.85-1.15); PARTIAL THROMBOPLASTIN TIME 29.6 SEC (26.3-35.5); PROTHROMBIN TIME 10.7 SEC (9.6-11.6)
[2018-10-27 05:23] LABS: ALBUMIN 3.8 g/dL (3.5-5.0); BILIRUBIN,TOTAL 0.4 mg/dL (0.2-1.0); TOTAL PROTEIN, SERUM 6.2 g/dL (6.0-8.3)
[2018-10-27] MEDS ORDERED: HALOPERIDOL LACTATE 5 MG/ML VIAL ONE (05:30)
[2018-10-27] MEDS ORDERED: LEVOFLOXACIN 500 MG TABLET ONE (06:34)
[2018-10-30] MEDS ORDERED: CHLO25TA23 PO (06:16)
== END 2018-10-27 07:04 | disposition home or self-care (01) ==
LOC: EDH 04:16
DX: A09 Infectious gastroenteritis and colitis, unspecified (principal); E86.0 Dehydration; R06.6 Hiccough; I10 Essential (primary) hypertension; Z21 Asymptomatic human immunodeficiency virus [HIV] infection status; Z85.72 Personal history of non-Hodgkin lymphomas; Z94.81 Bone marrow transplant status; Z90.49 Acquired absence of other specified parts of digestive tract; Z88.5 Allergy status to narcotic agent; Z88.1 Allergy status to other antibiotic agents; Z88.6 Allergy status to analgesic agent
CPT/HCPCS: 36415; 71045; 80053; 81003; 82150; 82550; 83690; 84484; 85025; 85610; 85730; 93005; 96361; 96374; 96375; 99285; J1630; J2405; J7030

== ENCOUNTER 2018-10-29 19:22 | Inpatient (IN) | payer OTHER, MEDICARE | END 2018-11-06 08:45 | disposition home or self-care (01) | LOC: EDH 19:22 → EDHIP 19:23 → 3DH 22:50 | DX: B20 Human immunodeficiency virus [HIV] disease (principal); A41.9 Sepsis, unspecified organism; C81.90 Hodgkin lymphoma, unspecified, unspecified site; J18.9 Pneumonia, unspecified organism; N17.9 Acute kidney failure, unspecified; Z94.84 Stem cells transplant status; E86.0 Dehydration; K52.9 Noninfective gastroenteritis and colitis, unspecified; R00.0 Tachycardia, unspecified ==

== ENCOUNTER 2019-06-01 10:26 | Emergency (ER) | payer OTHER, MEDICARE ==
[~2019-06-01 10:26] MED LIST changes: -ALPR2TAB7 PO; -ATOR10 PO; -DIPH25CA85 PO; -GABA-531 PO; -ONDA8TAB5 PO; -OXYC30TA89 PO; -PANT40TA25 PO; -PREN-64 PO; -RANI-643 PO
[2019-06-01] MEDS ORDERED: SULFAMETHOX-TMP DS 800/160 TAB ONE (10:50)
== END 2019-06-01 11:03 | disposition home or self-care (01) ==
LOC: EDH 10:26
DX: L02.412 Cutaneous abscess of left axilla (principal); Z88.5 Allergy status to narcotic agent; Z88.6 Allergy status to analgesic agent; Z88.2 Allergy status to sulfonamides

== ENCOUNTER 2019-07-30 13:20 | Inpatient (IN) | payer OTHER, MEDICARE ==
[~2019-07-30] VITALS: Ht 170.2 cm; Wt 59.0 kg
[2019-07-30 14:00] LABS: BASOPHILS % (AUTO) 0.1 % (0.0-5.0); EOSINOPHILS % (AUTO) 0.4 % (0.0-8.0); HEMATOCRIT 44.3 % (42-54); LYMPHOCYTES % (AUTO) 16.4 % (21.0-51.0); MEAN CORPUSCULAR HEMOGLOBIN 31.3 pg (27.0-33.0); MEAN CORPUSCULAR HGB CONC 33.4 g/dL (32.0-36.0); MEAN CORPUSCULAR VOLUME 93.7 fL (79-99); MONOCYTES % (AUTO) 9.7 % (3.0-13.0); NEUTROPHILS % (AUTO) 72.3 % (40.0-77.0); PLATELET COUNT (AUTO) 199 K/uL (130-400); RED BLOOD CELL COUNT(AUTO) 4.73 MIL/uL (4.50-6.20); RED CELL DISTRIBUTION WIDTH 13.4 % (11.0-15.5); WHITE BLOOD COUNT (AUTO) 11.1 K/uL (4.8-10.8)
[2019-07-30 14:08] LABS: CREATININE 3.1 mg/dL (0.5-1.5); POTASSIUM 3.7 mmol/L (3.5-5.1)
[2019-07-30 14:10] LABS: AMYLASE 100 U/L (25-115); LIPASE 133 U/L (114-286)
[2019-07-30 14:12] LABS: INR 0.99 (0.85-1.15); PARTIAL THROMBOPLASTIN TIME 34.5 SEC (26.3-35.5); PROTHROMBIN TIME 10.7 SEC (9.6-11.6)
[2019-07-30 14:13] LABS: ALBUMIN 3.1 g/dL (3.5-5.0); BILIRUBIN,TOTAL 0.5 mg/dL (0.2-1.0); TOTAL PROTEIN, SERUM 7.4 g/dL (6.0-8.3)
[2019-07-30] MEDS ORDERED: SODIUM CHLORIDE 0.9% 1000ML 1,000 ML IV ONE ×2 (15:01→15:11)
[2019-07-30] MEDS ORDERED: ONDANSETRON HCL 4 MG/2 ML VIAL ONE (15:11)
[2019-07-30] MEDS ORDERED: HYDROMORPHONE 1 MG/1 ML AMP ONE (15:12)
[2019-07-30] MEDS: SODIUM CHLORIDE 0.9% 1000ML 1,000 ML IV SCH (16:15)
[2019-07-30] MEDS: METRONIDAZOLE 500MG/100ML BAG 100 ML IVPB SCH (17:00)
[2019-07-30] MEDS ORDERED: DIPH1TAB24 PO (18:36)
[2019-07-30 18:44] VITALS: BP 113/76
[2019-07-30] MEDS: HYDROMORPHONE 1 MG/1 ML AMP IVP PRN ×2 (18:44→23:29)
[2019-07-30 20:11] VITALS: BP 99/62
[2019-07-30] MEDS: ONDANSETRON HCL 4 MG/2 ML VIAL IVP PRN (23:28)
[2019-07-30 23:53] VITALS: BP 100/58
[2019-07-31] MEDS: METRONIDAZOLE 500MG/100ML BAG 100 ML IVPB SCH ×3 (01:00→15:50)
[2019-07-31] MEDS ORDERED: DIPHENHYDRAMINE HCL 25 MG CAPSULE ONE (01:09)
[2019-07-31] MEDS ORDERED: DIPHENHYDRAMINE HCL 25 MG CAPSULE PO PRN (01:15)
[2019-07-31] MEDS: SODIUM CHLORIDE 0.9% 1000ML 1,000 ML IV SCH ×3 (01:43→20:55)
[2019-07-31 04:11] VITALS: BP 92/53
[2019-07-31] MEDS: HYDROMORPHONE 1 MG/1 ML AMP IVP PRN ×5 (05:44→23:44)
[2019-07-31] MEDS: ZOSYN 3.375GM+NS 50ML 50 ML IV SCH ×3 (07:39→23:33)
[2019-07-31 08:12] VITALS: BP 99/56
[2019-07-31 11:43] VITALS: BP 109/62
[2019-07-31 15:50] VITALS: BP 105/68
--- NOTE | 2019-07-31 17:16 | NUR ---
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 LIVES WITH PARTNER STEFFEN WHO WILL PROVIDE TRANSPORT, HAS MICHELLE BENITEZ CHAIR, [email or web address] [facility], HERE FOR DIARRHEA AND ABDMONAL PAIN- COMPLAINING ABOUT THE FOOD- WANTS OUTSIDE FOOD- [facility] IS NOT ACCEPTABLE. BRIEF DIET ED DONE- ADVISED THAT WHITE RICE IS GOOD FOR DIARRHEA. PT EMPHAISZES WHATS DIET CHANGED. WILL PASS ON DCP IS HOME Addendum: 07/31/19 at 1720 by CARA ROYAL RN CM Amended: Links added.
[2019-07-31] MEDS: ONDANSETRON HCL 4 MG/2 ML VIAL IVP PRN (18:21)
--- NOTE | 2019-07-31 19:50 | NUR ---
ASSESS PT COMPLAINTS OF ABDOMINAL PAINS. SHIFT ASSESSMENT DONE, PLEASE REFER TO CHART. MEDICATED WITH DILAUDID IV FOR PAINS. KEPT RESTED AND COMFORTABLE IN BED. CALL LIGHT WITHIN REACH. WILL RE-ASSESS PT. Addendum: 07/31/19 at 2120 by TROY INGRAM RN RN Amended: Links added.
[2019-07-31 20:00] VITALS: BP 105/66
--- NOTE | 2019-07-31 22:00 | NUR ---
ROUNDS PT RESTING WELL, NO CONCERNS VERBALIZED. KEPT COMFORTABLE. ENCOURAGED TO SLEEP. WILL MONITOR PT.
--- NOTE | 2019-07-31 23:44 | NUR ---
PAIN PT CALLS FOR PAIN MEDICATION, CLAIMS OF ABDOMINAL PAINS. MEDICATED WITH DILAUDID IV. KEPT RESTED AND COMFORTALBE IN BED. CALL LIGHT WITHIN REACH. WILL RE-ASSESS PT. Addendum: 08/01/19 at 0010 by TROY INGRAM RN RN Amended: Links added.
[2019-08-01 00:01] VITALS: BP 107/68
[2019-08-01] MEDS: ONDANSETRON HCL 4 MG/2 ML VIAL IVP PRN ×2 (00:28→15:30)
[2019-08-01] MEDS: METRONIDAZOLE 500MG/100ML BAG 100 ML IVPB SCH ×3 (00:28→18:19)
--- NOTE | 2019-08-01 04:00 | NUR ---
PAIN PCP IN TO CHECK V/S, STABLE. PT CLAIMS OF PAINS GENERALLY TO ABDOMEN AND KNEES. MEDICATED WITH DILAUDID IV. KEPT COMFORTABLE IN BED. WILL RE-ASSESS PT. Addendum: 08/01/19 at 0414 by TROY INGRAM RN RN Amended: Links added.
[2019-08-01] MEDS: HYDROMORPHONE 1 MG/1 ML AMP IVP PRN ×5 (04:02→20:02)
[2019-08-01 04:51] VITALS: BP 118/71
[2019-08-01] MEDS: ZOSYN 3.375GM+NS 50ML 50 ML IV SCH ×3 (05:46→22:49)
--- NOTE | 2019-08-01 05:46 | NUR ---
MEDS PT IS FAIRLY ASLEEP WHEN ATHLETIC COORDINATOR ENTERS ROOM BUT AWAKENS SOON THE DOOR OPENS. NO CONCERNS VERBALIZED. ENCOURAGED TO GO BACK TO SLEEP. DUE MEDS ADMINISTERED. FOR MORE CARE.
[2019-08-01 07:22] VITALS: BP 96/61
[2019-08-01] MEDS: SODIUM CHLORIDE 0.9% 1000ML 1,000 ML IV SCH ×2 (08:02→22:49)
[2019-08-01 10:59] VITALS: BP 98/64
[2019-08-01] MEDS ORDERED: DIPHENOXYLATE HCL/ATROPINE 2.5/0.025 MG TAB PO PRN (12:00)
[2019-08-01 13:00] LABS: HEMATOCRIT 32.6 % (42-54); MEAN CORPUSCULAR HEMOGLOBIN 31.5 pg (27.0-33.0); MEAN CORPUSCULAR HGB CONC 32.2 g/dL (32.0-36.0); MEAN CORPUSCULAR VOLUME 97.9 fL (79-99); PLATELET COUNT (AUTO) 105 K/uL (130-400); RED BLOOD CELL COUNT(AUTO) 3.33 MIL/uL (4.50-6.20); RED CELL DISTRIBUTION WIDTH 13.6 % (11.0-15.5)
[2019-08-01 14:00] LABS: LYMPHOCYTES % (MANUAL) 32 % (22-44); MONOCYTES % (MANUAL) 8 % (2-9); SEGMENTED NEUTROPHILS % 60 % (40-70)
[2019-08-01 14:01] LABS: MAN.DIFF COMMENT-IMPRESSION MANUAL DIFFERENTIAL
[2019-08-01 14:05] LABS: PLATELET MORPHOLOGY COMMENT SLIGHTLY DECREASED
--- NOTE | 2019-08-01 15:05 | NUR ---
RD UPDATE RD NOTIFIED OF PT WITH [employer] AND PICKY EATER. RD CONTACTED PT VIA PHONE TO REVIEW FOOD PREFERENCES. PT LISTED FOODS DISLIKED BUT ALSO DISLIKES "FOODS WITH NO FLAVOR". PT DESIRES TO BRING FOOD FROM HOME. IF NOT, THREATENED TO LEAVE AMA. RD OFFERED SANDWICH WITH ENSURE. PT AGREED FOR NOW BUT STATES NOT SUFFICIENT AND WOULD PREFER TO GO HOME. PT SERVICES TO CALL PT PRIOR TO MEAL SERVICE. RD ENCOURAGED PT TO NOTIFY ADDITIONAL CONCERNS ARISE.
[2019-08-01 15:41] VITALS: BP 109/69
[2019-08-01 21:04] VITALS: BP 119/80
--- NOTE | 2019-08-01 22:01 | NUR ---
2139: I called answering service, was placed on hold till 2149. I spoke to regarding patient's complain of Dilaudid not lasting the full 4 hours. I received orders for Dilaudid 1 mg IVP every 3 hours as needed for severe pain. Patient made aware of new orders verbalized understanding.
[2019-08-01] MEDS ORDERED: HYDROMORPHONE 1 MG/1 ML AMP ONE (22:45)
[2019-08-02 00:29] VITALS: BP 121/75
[2019-08-02] MEDS ORDERED: HYDROMORPHONE 1 MG/1 ML AMP ONE ×2 (01:57→05:19)
[2019-08-02] MEDS: METRONIDAZOLE 500MG/100ML BAG 100 ML IVPB SCH ×3 (02:03→18:54)
[2019-08-02] MEDS: SODIUM CHLORIDE 0.9% 1000ML 1,000 ML IV SCH ×3 (04:12→22:45)
[2019-08-02 04:40] VITALS: BP 117/73
[2019-08-02] MEDS: ZOSYN 3.375GM+NS 50ML 50 ML IV SCH ×3 (07:20→22:42)
[2019-08-02 07:30] VITALS: BP 114/73
[2019-08-02] MEDS: ONDANSETRON HCL 4 MG/2 ML VIAL IVP PRN ×2 (08:22→11:51)
[2019-08-02] MEDS: HYDROMORPHONE 1 MG/1 ML AMP IVP PRN ×5 (08:22→22:45)
[2019-08-02 11:00] VITALS: BP 100/65
[2019-08-02 16:00] VITALS: BP 102/71
[2019-08-02 20:29] VITALS: BP 112/73
[2019-08-03 00:10] VITALS: BP 108/67
[2019-08-03] MEDS: SODIUM CHLORIDE 0.9% 1000ML 1,000 ML IV SCH (00:15)
[2019-08-03] MEDS: METRONIDAZOLE 500MG/100ML BAG 100 ML IVPB SCH ×2 (00:16→10:17)
[2019-08-03] MEDS: HYDROMORPHONE 1 MG/1 ML AMP IVP PRN ×3 (03:55→10:44)
[2019-08-03 04:00] VITALS: BP 105/70
[2019-08-03] MEDS: ZOSYN 3.375GM+NS 50ML 50 ML IV SCH (06:35)
[2019-08-03 08:00] VITALS: BP 115/72
[2019-08-03] MEDS: ONDANSETRON HCL 4 MG/2 ML VIAL IVP PRN (08:07)
--- NOTE | 2019-08-03 12:45 | NUR ---
Discharge instructions, medications and follow up appointments reviewed. Patient verbalized understanding of instructions. Pending call back from Dr. Gregory's office for appointment time. Per patient, doesn't want to wait for call back with appointment time and will call office for appointment. Per Dr. Gregory, will transmit anti-nausea medication to patient's pharmacy. PIV to LFA removed, bleeding controlled, and dressing applied. Patient to notify staff once family arrives to transport home.
== END 2019-08-03 13:00 | disposition home or self-care (01) | DRG 975 ==
LOC: EDH 13:20 → EDHIP 15:05 → 3AH 18:01
PROVIDERS: ADMIT Internal Medicine Hematology & Oncology; ATTEND Internal Medicine Hematology & Oncology
DX: B20 Human immunodeficiency virus [HIV] disease (principal); A41.9 Sepsis, unspecified organism; A04.72 Enterocolitis due to Clostridium difficile, not specified as recurrent; C81.90 Hodgkin lymphoma, unspecified, unspecified site; N17.9 Acute kidney failure, unspecified; Z94.84 Stem cells transplant status; R64 Cachexia; N18.9 Chronic kidney disease, unspecified; K52.9 Noninfective gastroenteritis and colitis, unspecified; E86.0 Dehydration; Z85.72 Personal history of non-Hodgkin lymphomas; Z88.5 Allergy status to narcotic agent; Z88.1 Allergy status to other antibiotic agents; Z88.8 Allergy status to other drugs, medicaments and biological substances; Z68.20 Body mass index [BMI] 20.0-20.9, adult
CPT/HCPCS: 36415; 71045; 74176; 80053; 82150; 82270; 83690; 85025; 85610; 85730; 87324; 87486; 87581; 87633; 87635; 87798; G0378; J1170; J2405; J2543; J3490; J7030; Q0163

== ENCOUNTER 2020-06-28 11:13 | Inpatient (IN) | payer OTHER, MEDICARE ==
[~2020-06-28] VITALS: Ht 172.7 cm; Wt 59.0 kg
[~2020-06-28 11:13] MED LIST changes: +DIPH1TAB24 PO
[2020-06-28 11:40] LABS: APPEARANCE,URINE Clear (CLEAR); BILIRUBIN,URINE Negative (NEGATIVE); COLOR,URINE Yellow (YELLOW); GLUCOSE, URINE (UA) Negative (NEGATIVE); KETONES,URINE Negative (NEGATIVE); LEUKOCYTE ESTERASE ,URINE Negative (NEGATIVE); NITRATE,URINE Negative (NEGATIVE); OCCULT BLOOD,URINE Negative (NEGATIVE); PH,URINE 5.5 (5.0-8.0); PROTEIN,URINE Negative (NEGATIVE); UROBILINOGEN,URINE 0.2 mg/dL (0.2-1.0)
[2020-06-28 11:56] LABS: BASOPHILS % (AUTO) 0.2 % (0.0-5.0); EOSINOPHILS % (AUTO) 0.4 % (0.0-8.0); HEMATOCRIT 34.8 % (42-54); LYMPHOCYTES % (AUTO) 16.7 % (21.0-51.0); MEAN CORPUSCULAR HEMOGLOBIN 31.5 pg (27.0-33.0); MEAN CORPUSCULAR HGB CONC 33.3 g/dL (32.0-36.0); MEAN CORPUSCULAR VOLUME 94.6 fL (79-99); MONOCYTES % (AUTO) 5.8 % (3.0-13.0); NEUTROPHILS % (AUTO) 76.2 % (40.0-77.0); PLATELET COUNT (AUTO) 143 K/uL (130-400); RED BLOOD CELL COUNT(AUTO) 3.68 MIL/uL (4.50-6.20); RED CELL DISTRIBUTION WIDTH 13.7 % (11.0-15.5); WHITE BLOOD COUNT (AUTO) 9.8 K/uL (4.8-10.8)
[2020-06-28 12:12] LABS: INR 1.01 (0.85-1.15)
[2020-06-28 12:13] LABS: PARTIAL THROMBOPLASTIN TIME 27.9 SEC (26.3-35.5)
[2020-06-28 12:18] LABS: CARBON DIOXIDE 24 mmol/L (21-32); CHLORIDE 103 mmol/L (101-111); CREATININE 1.7 mg/dL (0.5-1.5); GLOMERULAR FILTR. RATE CALC 47 mL/min (>60); GLUCOSE,RANDOM 96 mg/dL (70-105); POTASSIUM 4.3 mmol/L (3.5-5.1); SODIUM SERUM 136 mmol/L (136-145); UREA NITROGEN, BLOOD 22 mg/dL (7-18)
[2020-06-28 12:26] LABS: ALANINE AMINOTRANSFERASE 38 U/L (12-78); ALBUMIN 3.4 g/dL (3.5-5.0); ASPARTATE AMINOTRANSFERASE 22 U/L (10-37); BILIRUBIN,TOTAL 0.4 mg/dL (0.2-1.0); CREATINE KINASE, TOTAL 65 U/L (21-232); MYOGLOBIN 52 ng/mL (10-92); TOTAL PROTEIN, SERUM 7.4 g/dL (6.0-8.3); TROPONIN I < 0.04 ng/mL (0.00-0.06)
[2020-06-28 12:56] LABS: B-TYPE NATRIURETIC PEPTIDE 65 pg/mL (0-100)
[2020-06-28] MEDS ORDERED: ONDANSETRON 4MG INJ ONE (12:57)
[2020-06-28] MEDS ORDERED: ACETAMINOPHEN 325 MG TAB ONE (12:57)
[2020-06-28] MEDS ORDERED: 0.9%NACL 1000ML 1,000 ML IV ONE ×2 (12:58→16:29)
[2020-06-28] MEDS: 0.9%NACL 1000ML 1,000 ML IV SCH (15:45)
[2020-06-28] MEDS: CEFTRIAXONE 1G VIAL IVP SCH (16:00)
[2020-06-28] MEDS ORDERED: CEFTRIAXONE 1G VIAL ONE (16:28)
[2020-06-28] MEDS ORDERED: AZITHROMYCIN 500MG+NS 250ML 250 ML IV ONE (16:28)
[2020-06-28] MEDS ORDERED: ALBUTEROL INHALER 90MCG/INH IH ONE (16:28)
[2020-06-28] MEDS: AZITHROMYCIN 500MG+NS 250ML 250 ML IV SCH (16:30)
[2020-06-28] MEDS: IPRATROPIUM/ALBUTEROL SULFATE 3 ML SOLUTION IH SCH ×2 (18:34→22:26)
[2020-06-28 20:00] VITALS: BP 113/69
[2020-06-28] MEDS: FENTANYL 100 MCG/HR PATCH TD SCH (20:15)
[2020-06-28] MEDS ORDERED: ALBUHFA IH (20:30)
[2020-06-28] MEDS ORDERED: FENTANYL 100 MCG/HR PATCH TD ONE (20:35)
[2020-06-28] MEDS ORDERED: OXYCODONE HCL 30 MG TABLET PO ONE (20:35)
[2020-06-28] MEDS ORDERED: DiphenhydrAMINE HCL 50 MG/ML VIAL ONE (22:05)
[2020-06-28] MEDS ORDERED: ONDANSETRON 4MG INJ IVP PRN (22:15)
[2020-06-28] MEDS ORDERED: DiphenhydrAMINE HCL 50 MG/ML VIAL IV PRN (22:15)
[2020-06-29] VITALS: BP 144/75
[2020-06-29] MEDS: 0.9%NACL 1000ML 1,000 ML IV SCH ×3 (01:45→20:01)
[2020-06-29] MEDS: IPRATROPIUM/ALBUTEROL SULFATE 3 ML SOLUTION IH SCH ×6 (02:02→23:56)
[2020-06-29] MEDS: OXYCODONE HCL 30 MG TABLET PO PRN ×3 (02:06→10:28)
[2020-06-29 04:00] VITALS: BP 96/51
[2020-06-29 07:33] VITALS: BP 89/54
[2020-06-29 11:13] VITALS: BP 106/63
[2020-06-29] MEDS: CEFTRIAXONE 1G VIAL IVP SCH (15:38)
[2020-06-29] MEDS: AZITHROMYCIN 500MG+NS 250ML 250 ML IV SCH (15:39)
[2020-06-29] MEDS: ONDANSETRON 4MG INJ IVP PRN ×2 (15:39→20:01)
[2020-06-29] MEDS: HYDROMORPHONE 1 MG INJ IVP PRN ×2 (15:39→20:01)
[2020-06-29 16:12] VITALS: BP 109/70
[2020-06-29] MEDS: DiphenhydrAMINE HCL 50 MG/ML VIAL IV PRN ×2 (17:36→22:27)
[2020-06-29 20:00] VITALS: BP 141/86
[2020-06-30] VITALS (8 sets, daily range): BP systolic 100–115; BP diastolic 55–77
[2020-06-30] MEDS: ONDANSETRON 4MG INJ IVP PRN ×4 (00:55→21:21)
[2020-06-30] MEDS: HYDROMORPHONE 1 MG INJ IVP PRN ×4 (00:55→21:22)
[2020-06-30] MEDS: IPRATROPIUM/ALBUTEROL SULFATE 3 ML SOLUTION IH SCH ×6 (02:49→22:10)
[2020-06-30 05:51] LABS: BASOPHILS % (AUTO) 0.2 % (0.0-5.0); EOSINOPHILS % (AUTO) 0.7 % (0.0-8.0); HEMATOCRIT 31.4 % (42-54); MEAN CORPUSCULAR HEMOGLOBIN 31.7 pg (27.0-33.0); MEAN CORPUSCULAR HGB CONC 33.1 g/dL (32.0-36.0); MEAN CORPUSCULAR VOLUME 95.7 fL (79-99); MONOCYTES % (AUTO) 7.6 % (3.0-13.0); NEUTROPHILS % (AUTO) 58.2 % (40.0-77.0); PLATELET COUNT (AUTO) 142 K/uL (130-400); RED BLOOD CELL COUNT(AUTO) 3.28 MIL/uL (4.50-6.20); RED CELL DISTRIBUTION WIDTH 13.8 % (11.0-15.5); WHITE BLOOD COUNT (AUTO) 6.1 K/uL (4.8-10.8)
[2020-06-30 06:18] LABS: BILIRUBIN,TOTAL 0.3 mg/dL (0.2-1.0); CREATININE 1.8 mg/dL (0.5-1.5); POTASSIUM 4.5 mmol/L (3.5-5.1); TOTAL PROTEIN, SERUM 6.7 g/dL (6.0-8.3)
[2020-06-30] MEDS: DiphenhydrAMINE HCL 50 MG/ML VIAL IV PRN ×3 (06:29→19:51)
[2020-06-30] MEDS: 0.9%NACL 1000ML 1,000 ML IV SCH ×2 (07:45→17:23)
[2020-06-30] MEDS: AZITHROMYCIN 500MG+NS 250ML 250 ML IV SCH (16:55)
[2020-06-30] MEDS: CEFTRIAXONE 1G VIAL IVP SCH (16:55)
[2020-07-01] MEDS: DiphenhydrAMINE HCL 50 MG/ML VIAL IV PRN ×6 (00:16→23:48)
[2020-07-01] MEDS: ONDANSETRON 4MG INJ IVP PRN ×4 (02:12→23:48)
[2020-07-01] MEDS: HYDROMORPHONE 1 MG INJ IVP PRN ×6 (02:12→23:48)
[2020-07-01] MEDS: IPRATROPIUM/ALBUTEROL SULFATE 3 ML SOLUTION IH SCH ×6 (02:19→23:01)
[2020-07-01] MEDS: 0.9%NACL 1000ML 1,000 ML IV SCH ×3 (02:57→23:38)
[2020-07-01 04:12] VITALS: BP 102/60
[2020-07-01 08:00] VITALS: BP 112/60
[2020-07-01 12:00] VITALS: BP 152/84
[2020-07-01] MEDS: CEFTRIAXONE 1G VIAL IVP SCH (15:46)
[2020-07-01] MEDS: AZITHROMYCIN 500MG+NS 250ML 250 ML IV SCH (15:46)
[2020-07-01 16:00] VITALS: BP 118/71
[2020-07-01] MEDS: FENTANYL 100 MCG/HR PATCH TD SCH (19:56)
[2020-07-01 20:46] VITALS: BP 109/65
[2020-07-02 00:49] VITALS: BP 117/66
[2020-07-02] MEDS: IPRATROPIUM/ALBUTEROL SULFATE 3 ML SOLUTION IH SCH ×4 (01:27→13:09)
[2020-07-02] MEDS: ONDANSETRON 4MG INJ IVP PRN ×3 (03:55→12:07)
[2020-07-02] MEDS: HYDROMORPHONE 1 MG INJ IVP PRN ×3 (03:56→12:08)
[2020-07-02] MEDS: DiphenhydrAMINE HCL 50 MG/ML VIAL IV PRN ×3 (03:56→12:07)
[2020-07-02 04:34] VITALS: BP 112/60
[2020-07-02 09:28] VITALS: BP 116/72
[2020-07-02] MEDS: 0.9%NACL 1000ML 1,000 ML IV SCH (09:45)
[2020-07-02 13:51] VITALS: BP 120/75
[2020-07-02] MEDS ORDERED: PROMETHAZINE HCL 25 MG/ML 1ML AMPULE IM SCH (15:30)
[2020-07-02] MEDS ORDERED: DEXAMETHASONE SOD PHOSPHATE 4 MG/ML 1ML VIAL IVP SCH (15:30)
[2020-07-02] MEDS ORDERED: MEPERIDINE-PF 25 MG/ML SYG IV SCH (15:30)
[2020-07-02] MEDS: CEFTRIAXONE 1G VIAL IVP SCH (16:00)
[2020-07-02 17:08] VITALS: BP 105/63
[2020-11-07] MEDS ORDERED: BICT1TAB PO (17:28)
[2020-11-08] MEDS ORDERED: BUTA1CAP53 PO (03:48)
[2020-11-08] MEDS ORDERED: OXYC30TA2 PO (03:49)
== END 2020-07-02 17:00 | disposition home or self-care (01) | DRG 975 ==
LOC: EDH 11:13 → EDHIP 13:44 → OBSVTOIN 13:44 → 3BH 18:29 → 3AH 18:31
PROVIDERS: ADMIT Internal Medicine Hematology & Oncology; ATTEND Internal Medicine Hematology & Oncology
DX: A41.9 Sepsis, unspecified organism (principal); C81.90 Hodgkin lymphoma, unspecified, unspecified site; B20 Human immunodeficiency virus [HIV] disease; J18.9 Pneumonia, unspecified organism; Z94.84 Stem cells transplant status; Z94.81 Bone marrow transplant status; G43.909 Migraine, unspecified, not intractable, without status migrainosus; Z20.822 Contact with and (suspected) exposure to COVID-19; Z92.21 Personal history of antineoplastic chemotherapy; Z88.5 Allergy status to narcotic agent; Z88.8 Allergy status to other drugs, medicaments and biological substances
CPT/HCPCS: 36415; 70450; 71045; 74150; 80053; 81003; 82550; 83605; 83874; 83880; 84145; 84484; 85025; 85610; 85730; 87040; 87071; 87205; 87426; 87804; 93005; 94640; 94664; G0378; J0456; J0696; J1100; J1170; J1200; J2175; J2405; J2550; J7030; U0003

== ENCOUNTER 2020-11-11 22:26 | Emergency (ER) | payer OTHER, MEDICARE ==
[~2020-11-11] VITALS: Ht 170.2 cm; Wt 66.7 kg
[~2020-11-11 22:26] MED LIST changes: +BUTA1CAP53 PO; -DIPH1TAB24 PO; -FENT-77 TD; +OXYC30TA2 PO
[2020-11-11 22:49] LABS: ABG BASE EXCESS -1.9 mmol/L (-2.0-3.0); ABG HCO3 22.2 mmol/L (21.0-28.0); ABG OXYGEN SATURATION 94.5 % (95.0-99.0); ABG PCO2 36 mmHg (35-48)
[2020-11-11 23:07] VITALS: BP 114/71
[2020-11-11 23:12] LABS: BASOPHILS % (AUTO) 0.4 % (0.0-5.0); EOSINOPHILS % (AUTO) 1.4 % (0.0-8.0); LYMPHOCYTES % (AUTO) 23.8 % (21.0-51.0); MEAN CORPUSCULAR HEMOGLOBIN 32.4 pg (27.0-33.0); MEAN CORPUSCULAR HGB CONC 32.8 g/dL (32.0-36.0); MONOCYTES % (AUTO) 7.4 % (3.0-13.0); NEUTROPHILS % (AUTO) 65.8 % (40.0-77.0); PLATELET COUNT (AUTO) 112 K/uL (130-400); RED BLOOD CELL COUNT(AUTO) 4.04 MIL/uL (4.50-6.20); WHITE BLOOD COUNT (AUTO) 5.1 K/uL (4.8-10.8)
[2020-11-11 23:26] LABS: CREATININE 2.1 mg/dL (0.5-1.5); POTASSIUM 3.6 mmol/L (3.5-5.1)
[2020-11-11 23:31] LABS: ALBUMIN 3.6 g/dL (3.5-5.0); BILIRUBIN,TOTAL 0.3 mg/dL (0.2-1.0); CRP QUANTITATIVE 82.6 mg/L (0.00-9.0); TOTAL PROTEIN, SERUM 7.4 g/dL (6.0-8.3)
[2020-11-12] MEDS ORDERED: 0.9%NACL 1000ML 1,000 ML IV ONE
[2020-11-12] MEDS ORDERED: ONDANSETRON 4MG INJ IVP ONE
[2020-11-12 00:15] LABS: MAGNESIUM 1.6 mg/dL (1.80-2.40)
[2020-11-12 00:25] LABS: ERYTHROCYTE SEDIMENTATION RATE 29 MM/HR (0-15)
[2020-11-12] MEDS ORDERED: MAGNESIUM OXIDE 400 MG TABLET PO SCH (00:30)
[2020-11-12 01:13] VITALS: BP 101/58
[2020-11-12 02:14] LABS: APPEARANCE,URINE Clear (CLEAR); BILIRUBIN,URINE Negative (NEGATIVE); COLOR,URINE Yellow (YELLOW); GLUCOSE, URINE (UA) Negative (NEGATIVE); KETONES,URINE Negative (NEGATIVE); LEUKOCYTE ESTERASE ,URINE Negative (NEGATIVE); NITRATE,URINE Negative (NEGATIVE); OCCULT BLOOD,URINE Negative (NEGATIVE); PH,URINE 5.5 (5.0-8.0); PROTEIN,URINE Trace mg/dL (NEGATIVE); UROBILINOGEN,URINE 0.2 mg/dL (0.2-1.0)
[2020-11-12 02:21] LABS: AMPHET/METH SCREEN,URINE NEGATIVE (NEGATIVE); BARBITURATE SCREEN, URINE POSITIVE (NEGATIVE); BENZODIAZEPINES SCREEN,URINE POSITIVE (NEGATIVE); CANNABINOID SCREEN,URINE NEGATIVE (NEGATIVE); COCAINE SCREEN,URINE NEGATIVE (NEGATIVE); OPIATE SCREEN,URINE NEGATIVE (NEGATIVE); PHENCYCLIDINE SCREEN,URINE NEGATIVE (NEGATIVE)
[2020-11-12 03:35] VITALS: BP 98/62
[2020-11-12 05:49] VITALS: BP 104/65
== END 2020-11-12 06:42 | disposition home or self-care (01) ==
LOC: EDH 22:26
DX: E86.0 Dehydration (principal); F19.10 Other psychoactive substance abuse, uncomplicated; R11.2 Nausea with vomiting, unspecified; R10.84 Generalized abdominal pain; R06.02 Shortness of breath; Z20.822 Contact with and (suspected) exposure to COVID-19; Z21 Asymptomatic human immunodeficiency virus [HIV] infection status; Z79.899 Other long term (current) drug therapy; Z88.1 Allergy status to other antibiotic agents; Z88.5 Allergy status to narcotic agent
CPT/HCPCS: 36415; 36600; 70450; 71045; 74176; 80053; 80305; 81003; 82550; 82803; 83605; 83690; 83735; 84484; 85025; 85378; 85651; 86140; 87635; 87804 ×2; 93005; 96374; 99285; C9803; J2405

== ENCOUNTER 2021-02-17 15:04 | Emergency (ER) | payer OTHER, MEDICARE ==
[~2021-02-17] VITALS: Ht 170.2 cm; Wt 69.9 kg
[2021-02-17 15:45] LABS: BASOPHILS % (AUTO) 0.3 % (0.0-5.0); EOSINOPHILS % (AUTO) 0.5 % (0.0-8.0); HEMATOCRIT 43.9 % (42-54); MEAN CORPUSCULAR HEMOGLOBIN 33.6 pg (27.0-33.0); MEAN CORPUSCULAR HGB CONC 32.8 g/dL (32.0-36.0); MEAN CORPUSCULAR VOLUME 102.6 fL (79-99); MONOCYTES % (AUTO) 5.9 % (3.0-13.0); NEUTROPHILS % (AUTO) 80.8 % (40.0-77.0); PLATELET COUNT (AUTO) 153 K/uL (130-400); RED BLOOD CELL COUNT(AUTO) 4.28 MIL/uL (4.50-6.20); WHITE BLOOD COUNT (AUTO) 10.3 K/uL (4.8-10.8)
[2021-02-17 16:14] LABS: CREATININE 1.9 mg/dL (0.5-1.5); POTASSIUM 4.1 mmol/L (3.5-5.1)
[2021-02-17 16:22] LABS: ALBUMIN 4.5 g/dL (3.5-5.0); BILIRUBIN,TOTAL 0.6 mg/dL (0.2-1.0); TOTAL PROTEIN, SERUM 8.4 g/dL (6.0-8.3)
[2021-02-17] MEDS ORDERED: ACETAMINOPHEN WITH CODEINE 1 TAB TAB PO ONE (17:30)
[2021-02-17] MEDS ORDERED: 0.9%NACL 1000ML 1,000 ML IV ONE (17:30)
[2021-02-17] MEDS ORDERED: SOLU-MEDROL 125MG VIAL IVP ONE (17:30)
[2021-02-17] MEDS ORDERED: IPRATROPIUM/ALBUTEROL SULFATE 3 ML SOLUTION IH ONE (17:30)
[2021-02-17] MEDS ORDERED: ALBUTEROL 0.042% 1.25MG/3ML IH SCH (18:00)
[2021-02-17] MEDS ORDERED: ALBUTEROL 0.083% 2.5 MG/3 ML INH IH ONE (18:18)
[2021-02-17] MEDS ORDERED: AMOX/CLAV 875/125MG TAB PO ONE (18:30)
[2021-02-17] MEDS ORDERED: DIPHENHYDRAMINE HCL 25 MG CAPSULE PO ONE (19:30)
[2021-02-17] MEDS ORDERED: PRED20TA3 PO (19:38)
[2021-02-17] MEDS ORDERED: ALBU8.5H8 IH (19:38)
[2021-02-17] MEDS ORDERED: AMOX-429 PO (19:38)
[2021-02-17] MEDS ORDERED: FLUT1DIS IH (19:38)
[2021-02-17 19:56] VITALS: BP 129/80
[2021-02-17] MEDS ORDERED: ALBUTEROL 0.083% 2.5 MG/3 ML INH IH SCH (22:00)
== END 2021-02-17 20:18 | disposition home or self-care (01) ==
LOC: EDH 15:04
DX: J40 Bronchitis, not specified as acute or chronic (principal); Z20.822 Contact with and (suspected) exposure to COVID-19; Z88.5 Allergy status to narcotic agent; Z88.1 Allergy status to other antibiotic agents; Z21 Asymptomatic human immunodeficiency virus [HIV] infection status; Z79.51 Long term (current) use of inhaled steroids; Z79.52 Long term (current) use of systemic steroids; Z79.899 Other long term (current) drug therapy
CPT/HCPCS: 36415; 71045; 80053; 85025; 87635; 87804 ×2; 94640 ×3; 96361; 96374; 99285; C9803; J2930; Q0163

== ENCOUNTER 2021-02-19 08:06 | Inpatient (IN) | payer OTHER, MEDICARE ==
[~2021-02-19] VITALS: Ht 170.2 cm; Wt 70.8 kg
[~2021-02-19 08:06] MED LIST changes: +ALBU8.5H8 IH; +AMOX-429 PO; +FLUT1DIS IH; +PRED20TA3 PO
[2021-02-19] MEDS ORDERED: 0.9%NACL 1000ML 1,000 ML IV SCH (09:30)
[2021-02-19 09:39] LABS: BASOPHILS % (AUTO) 0.3 % (0.0-5.0); EOSINOPHILS % (AUTO) 0.4 % (0.0-8.0); HEMATOCRIT 36.7 % (42-54); LYMPHOCYTES % (AUTO) 10.3 % (21.0-51.0); MEAN CORPUSCULAR HEMOGLOBIN 33.7 pg (27.0-33.0); MEAN CORPUSCULAR VOLUME 102.2 fL (79-99); NEUTROPHILS % (AUTO) 81.2 % (40.0-77.0); PLATELET COUNT (AUTO) 130 K/uL (130-400); RED BLOOD CELL COUNT(AUTO) 3.59 MIL/uL (4.50-6.20); RED CELL DISTRIBUTION WIDTH 13.1 % (11.0-15.5); WHITE BLOOD COUNT (AUTO) 7.3 K/uL (4.8-10.8)
[2021-02-19 09:44] LABS: CREATININE 2.2 mg/dL (0.5-1.5); POTASSIUM 3.8 mmol/L (3.5-5.1)
[2021-02-19 09:48] LABS: ALBUMIN 3.9 g/dL (3.5-5.0); BILIRUBIN,TOTAL 0.3 mg/dL (0.2-1.0); TOTAL PROTEIN, SERUM 7.4 g/dL (6.0-8.3)
[2021-02-19 10:33] LABS: APPEARANCE,URINE Clear (CLEAR); BILIRUBIN,URINE Negative (NEGATIVE); COLOR,URINE Yellow (YELLOW); GLUCOSE, URINE (UA) Negative (NEGATIVE); KETONES,URINE Negative (NEGATIVE); LEUKOCYTE ESTERASE ,URINE Negative (NEGATIVE); NITRATE,URINE Negative (NEGATIVE); OCCULT BLOOD,URINE Negative (NEGATIVE); PH,URINE 5.5 (5.0-8.0); PROTEIN,URINE Trace mg/dL (NEGATIVE); UROBILINOGEN,URINE 0.2 mg/dL (0.2-1.0)
[2021-02-19] MEDS ORDERED: HYDROMORPHONE 1 MG INJ ONE (10:41)
[2021-02-19] MEDS ORDERED: ONDANSETRON 4MG INJ ONE (10:41)
[2021-02-19 10:47] LABS: BACTERIA,URINE None Seen /HPF (None Seen); RBC,URINE 0-1 /HPF (0-1); SQUAMOUS EPITHELIAL CELL,UR 0-2 /HPF (0-2); WBC,URINE 0-1 /HPF (0-1)
[2021-02-19] MEDS ORDERED: DiphenhydrAMINE HCL 50 MG/ML VIAL ONE (11:58)
[2021-02-19] MEDS: 0.9%NACL 1000ML 1,000 ML IV SCH ×2 (12:00→22:00)
[2021-02-19] MEDS ORDERED: ACETAMINOPHEN 325 MG TAB PO PRN (12:00)
[2021-02-19] MEDS: CEFTRIAXONE 1G VIAL IVP SCH (12:00)
[2021-02-19] MEDS ORDERED: HYDROMORPHONE 1 MG INJ IVP ONE (13:40)
[2021-02-19] MEDS ORDERED: OXYCODONE HCL 30 MG TABLET PO PRN (14:00)
[2021-02-19] MEDS ORDERED: ALBUTEROL 0.083% 2.5 MG/3 ML INH IH SCH (14:00)
[2021-02-19 14:06] VITALS: BP 125/74
[2021-02-19] MEDS ORDERED: BUTALB/ACETAMINOPHEN/CAFFEINE 1 EACH TABLET PO PRN (14:30)
[2021-02-19] MEDS: AZITHROMYCIN 500MG+NS 250ML IV SCH (15:57)
[2021-02-19] MEDS: 0.9% NACL 250ML IVPB SCH (15:57)
[2021-02-19] MEDS ORDERED: FENT-77 TD (16:23)
[2021-02-19] MEDS ORDERED: HYDROXYZINE 25 MG TABLET PO PRN (16:30)
[2021-02-19] MEDS ORDERED: ALBUTEROL INHALER 90MCG/INH IH SCH (16:30)
[2021-02-19 20:00] VITALS: BP 127/69
[2021-02-19] MEDS: HYDROMORPHONE 1 MG INJ IVP PRN (20:08)
[2021-02-19] MEDS: ACETAMINOPHEN 325 MG TAB PO PRN (20:09)
[2021-02-19] MEDS: DiphenhydrAMINE HCL 50 MG/ML VIAL IV PRN (20:11)
[2021-02-20] MEDS: HYDROMORPHONE 1 MG INJ IVP PRN ×6 (00:06→23:24)
[2021-02-20 00:25] VITALS: BP 133/73
[2021-02-20] MEDS ORDERED: IBUPROFEN 400 MG TABLET ONE (00:43)
[2021-02-20] MEDS ORDERED: IBUPROFEN 400 MG TABLET PO ONE (01:00)
[2021-02-20 01:18] LABS: CREATININE 2.1 mg/dL (0.5-1.5); POTASSIUM 4.1 mmol/L (3.5-5.1)
[2021-02-20 01:34] LABS: BASOPHILS % (AUTO) 0.4 % (0.0-5.0); EOSINOPHILS % (AUTO) 0.6 % (0.0-8.0); HEMATOCRIT 36.8 % (42-54); LYMPHOCYTES % (AUTO) 15.9 % (21.0-51.0); MEAN CORPUSCULAR HEMOGLOBIN 33.4 pg (27.0-33.0); MEAN CORPUSCULAR HGB CONC 31.8 g/dL (32.0-36.0); MEAN CORPUSCULAR VOLUME 105.1 fL (79-99); MONOCYTES % (AUTO) 6.3 % (3.0-13.0); NEUTROPHILS % (AUTO) 76.2 % (40.0-77.0); PLATELET COUNT (AUTO) 98 K/uL (130-400); RED CELL DISTRIBUTION WIDTH 13.2 % (11.0-15.5); WHITE BLOOD COUNT (AUTO) 4.8 K/uL (4.8-10.8)
[2021-02-20] MEDS: ACETAMINOPHEN 325 MG TAB PO PRN ×2 (01:55→21:46)
[2021-02-20 02:55] VITALS: BP 101/60
[2021-02-20 08:00] VITALS: BP 73/53
[2021-02-20] MEDS: ONDANSETRON 4MG INJ IVP PRN ×2 (08:50→19:07)
[2021-02-20] MEDS: DiphenhydrAMINE HCL 50 MG/ML VIAL IV PRN ×3 (08:50→19:07)
[2021-02-20] MEDS: EMTRICITABINE PO SCH (09:00)
[2021-02-20] MEDS: TENOFOVIR ALAFENAMIDE PO SCH (09:00)
[2021-02-20] MEDS: BICTEGRAVIR PO SCH (09:00)
[2021-02-20] MEDS: 0.9%NACL 1000ML 1,000 ML IV SCH ×3 (10:16→23:23)
[2021-02-20 11:15] VITALS: BP 88/69
[2021-02-20] MEDS: CEFTRIAXONE 1G VIAL IVP SCH (12:35)
[2021-02-20] MEDS: AZITHROMYCIN 500MG+NS 250ML IV SCH (12:35)
[2021-02-20] MEDS: 0.9% NACL 250ML IVPB SCH (12:35)
[2021-02-20 16:12] VITALS: BP 88/56
[2021-02-20 20:00] VITALS: BP 101/69
[2021-02-21] VITALS: BP 102/61
[2021-02-21] MEDS: DiphenhydrAMINE HCL 50 MG/ML VIAL IV PRN ×3 (03:10→17:49)
[2021-02-21 04:00] VITALS: BP 102/68
[2021-02-21] MEDS: ONDANSETRON 4MG INJ IVP PRN ×5 (04:30→21:56)
[2021-02-21] MEDS: HYDROMORPHONE 1 MG INJ IVP PRN ×5 (04:30→23:12)
[2021-02-21 07:41] VITALS: BP 117/77
[2021-02-21] MEDS: BICTEGRAVIR PO SCH (09:00)
[2021-02-21] MEDS: EMTRICITABINE PO SCH (09:00)
[2021-02-21] MEDS: TENOFOVIR ALAFENAMIDE PO SCH (09:00)
[2021-02-21 11:00] VITALS: BP 102/75
[2021-02-21] MEDS: AZITHROMYCIN 500MG+NS 250ML IV SCH (12:38)
[2021-02-21] MEDS: 0.9% NACL 250ML IVPB SCH (12:38)
[2021-02-21] MEDS: CEFTRIAXONE 1G VIAL IVP SCH (12:38)
[2021-02-21] MEDS ORDERED: FENT-77 TD (15:16)
[2021-02-21] MEDS ORDERED: ALPR2TAB7 PO (15:16)
[2021-02-21] MEDS ORDERED: FENTANYL 100 MCG/HR PATCH TD SCH (15:30)
[2021-02-21] MEDS ORDERED: ALPRAZOLAM 1 MG TAB PO PRN (15:30)
[2021-02-21 15:45] VITALS: BP 117/76
[2021-02-21 20:00] VITALS: BP 102/70
[2021-02-22] VITALS: BP 103/66
[2021-02-22] MEDS: HYDROMORPHONE 1 MG INJ IVP PRN ×3 (03:36→13:37)
[2021-02-22 03:59] VITALS: BP 111/72
[2021-02-22 07:57] VITALS: BP 103/68
[2021-02-22] MEDS: ONDANSETRON 4MG INJ IVP PRN (09:19)
[2021-02-22] MEDS: DiphenhydrAMINE HCL 50 MG/ML VIAL IV PRN (09:43)
[2021-02-22 12:08] VITALS: BP 94/63
[2021-02-22] MEDS: AZITHROMYCIN 500MG+NS 250ML IV SCH (13:10)
[2021-02-22] MEDS: CEFTRIAXONE 1G VIAL IVP SCH (13:10)
[2021-02-22 16:00] VITALS: BP 117/77
== END 2021-02-22 16:25 | disposition home or self-care (01) | DRG 975 ==
LOC: EDH 08:06 → OBSVTOIN 11:48 → EDHIP 11:48 → 3DH 14:08
PROVIDERS: ADMIT Internal Medicine Hematology & Oncology; ATTEND Internal Medicine Hematology & Oncology
DX: A41.9 Sepsis, unspecified organism (principal); B20 Human immunodeficiency virus [HIV] disease; C81.90 Hodgkin lymphoma, unspecified, unspecified site; J18.9 Pneumonia, unspecified organism; Z94.84 Stem cells transplant status; G89.4 Chronic pain syndrome; Z20.822 Contact with and (suspected) exposure to COVID-19; Z91.018 Allergy to other foods; Z88.5 Allergy status to narcotic agent; Z91.013 Allergy to seafood; Z88.8 Allergy status to other drugs, medicaments and biological substances
CPT/HCPCS: 36415; 71045; 71046; 71250; 80048; 80053; 81001; 82550; 83605; 84484; 85025; 85730; 87040; 87088; 87635; 87804; 93005; 93970; 94640; 96361; 96374; C9803; G0378; J0456; J0696; J1170; J1200; J2405; J2930; J7050; Q0163

== ENCOUNTER 2021-04-02 11:26 | Inpatient (IN) | payer OTHER, MEDICARE ==
[~2021-04-02] VITALS: Ht 170.2 cm; Wt 72.0 kg
[~2021-04-02 11:26] MED LIST changes: +ALPR2TAB7 PO; -AMOX-429 PO; +FENT-77 TD; -FLUT1DIS IH; -PRED20TA3 PO
[2021-04-02] MEDS ORDERED: 0.9%NACL 50ML 50 ML IV ONE (12:47)
[2021-04-02 12:48] LABS: BASOPHILS % (AUTO) 0.2 % (0.0-5.0); EOSINOPHILS % (AUTO) 0.3 % (0.0-8.0); HEMATOCRIT 45.6 % (42-54); LYMPHOCYTES % (AUTO) 14.8 % (21.0-51.0); MEAN CORPUSCULAR HEMOGLOBIN 32.5 pg (27.0-33.0); MEAN CORPUSCULAR HGB CONC 32.9 g/dL (32.0-36.0); MEAN CORPUSCULAR VOLUME 98.9 fL (79-99); MONOCYTES % (AUTO) 6.8 % (3.0-13.0); NEUTROPHILS % (AUTO) 77.5 % (40.0-77.0); PLATELET COUNT (AUTO) 140 K/uL (130-400); RED BLOOD CELL COUNT(AUTO) 4.61 MIL/uL (4.50-6.20); RED CELL DISTRIBUTION WIDTH 13.5 % (11.0-15.5); WHITE BLOOD COUNT (AUTO) 9.5 K/uL (4.8-10.8)
[2021-04-02 12:56] LABS: INR 1.02 (0.85-1.15); PROTHROMBIN TIME 11.1 SEC (9.6-11.6)
[2021-04-02 12:57] LABS: CREATININE 2.1 mg/dL (0.5-1.5); PARTIAL THROMBOPLASTIN TIME 29.1 SEC (26.3-35.5); POTASSIUM 4.4 mmol/L (3.5-5.1)
[2021-04-02 12:59] LABS: ALBUMIN 4.5 g/dL (3.5-5.0); BILIRUBIN,TOTAL 1.1 mg/dL (0.2-1.0); TOTAL PROTEIN, SERUM 8.6 g/dL (6.0-8.3)
[2021-04-02] MEDS: ONDANSETRON 4MG INJ IVP PRN ×2 (13:11→17:27)
[2021-04-02] MEDS: 0.9%NACL 1000ML 1,000 ML IV SCH (13:11)
[2021-04-02] MEDS: ZOSYN 3.375GM +NS 50ML IV SCH ×2 (13:11→21:10)
[2021-04-02] MEDS: HYDROMORPHONE 1 MG INJ IVP PRN ×2 (13:11→17:28)
[2021-04-02] MEDS ORDERED: HYDROMORPHONE 1 MG INJ IVP ONE (14:30)
[2021-04-02 14:33] LABS: APPEARANCE,URINE Clear (CLEAR); BILIRUBIN,URINE Negative (NEGATIVE); COLOR,URINE Yellow (YELLOW); GLUCOSE, URINE (UA) Negative (NEGATIVE); KETONES,URINE Negative (NEGATIVE); LEUKOCYTE ESTERASE ,URINE Negative (NEGATIVE); NITRATE,URINE Negative (NEGATIVE); OCCULT BLOOD,URINE Nonhemolyzed Trace (NEGATIVE); PH,URINE 5.5 (5.0-8.0); PROTEIN,URINE Negative (NEGATIVE)
[2021-04-02 14:38] LABS: AMPHET/METH SCREEN,URINE NEGATIVE (NEGATIVE); BARBITURATE SCREEN, URINE NEGATIVE (NEGATIVE); BENZODIAZEPINES SCREEN,URINE NEGATIVE (NEGATIVE); CANNABINOID SCREEN,URINE NEGATIVE (NEGATIVE); COCAINE SCREEN,URINE NEGATIVE (NEGATIVE); OPIATE SCREEN,URINE NEGATIVE (NEGATIVE); PHENCYCLIDINE SCREEN,URINE NEGATIVE (NEGATIVE)
[2021-04-02 14:55] LABS: BACTERIA,URINE Rare /HPF (None Seen); RBC,URINE 0-1 /HPF (0-1); SQUAMOUS EPITHELIAL CELL,UR 0-2 /HPF (0-2); WBC,URINE None Seen /HPF (0-1)
[2021-04-02] MEDS: LINEZOLID 600 MG/ISO-OSM 300 ML IV SCH (17:27)
[2021-04-02 17:30] VITALS: BP 108/64
[2021-04-02] MEDS: DiphenhydrAMINE HCL 50 MG/ML VIAL IV PRN (18:29)
[2021-04-02 20:51] VITALS: BP 139/77
[2021-04-03] MEDS ORDERED: ACETAMINOPHEN 325 MG TAB ONE (00:32)
[2021-04-03] MEDS: DiphenhydrAMINE HCL 50 MG/ML VIAL IV PRN ×4 (00:35→23:23)
[2021-04-03 00:42] VITALS: BP 109/72
[2021-04-03 03:43] VITALS: BP 90/51
[2021-04-03] MEDS: LINEZOLID 600 MG/ISO-OSM 300 ML IV SCH ×2 (04:52→16:21)
[2021-04-03] MEDS: HYDROMORPHONE 1 MG INJ IVP PRN ×5 (04:53→19:07)
[2021-04-03] MEDS: ZOSYN 3.375GM +NS 50ML IV SCH ×3 (05:32→22:48)
[2021-04-03 08:41] VITALS: BP 90/58
[2021-04-03 11:23] VITALS: BP 92/58
[2021-04-03] MEDS: ONDANSETRON 4MG INJ IVP PRN ×2 (11:54→19:07)
[2021-04-03 12:41] LABS: HEMATOCRIT 38.1 % (42-54); MEAN CORPUSCULAR HEMOGLOBIN 32.8 pg (27.0-33.0); MEAN CORPUSCULAR HGB CONC 33.1 g/dL (32.0-36.0); MEAN CORPUSCULAR VOLUME 99.2 fL (79-99); PLATELET COUNT (AUTO) 98 K/uL (130-400); RED BLOOD CELL COUNT(AUTO) 3.84 MIL/uL (4.50-6.20); RED CELL DISTRIBUTION WIDTH 13.9 % (11.0-15.5); WHITE BLOOD COUNT (AUTO) 11.8 K/uL (4.8-10.8)
[2021-04-03 13:46] LABS: EOSINOPHILS % (MANUAL) 1 % (1-6); LYMPHOCYTES % (MANUAL) 11 % (22-44); MAN.DIFF COMMENT-IMPRESSION MANUAL DIFFERENTIAL; MONOCYTES % (MANUAL) 12 % (2-9); SEGMENTED NEUTROPHILS % 76 % (40-70)
[2021-04-03 13:48] LABS: PLATELET MORPHOLOGY COMMENT SLIGHTLY DECREASED
[2021-04-03 16:23] VITALS: BP 110/72
[2021-04-03 20:00] VITALS: BP 112/68
[2021-04-04] VITALS (28 sets, daily range): BP systolic 90–145; BP diastolic 49–79
[2021-04-04] MEDS: ONDANSETRON 4MG INJ IVP PRN ×3 (01:06→23:19)
[2021-04-04] MEDS: HYDROMORPHONE 1 MG INJ IVP PRN ×5 (01:07→23:19)
[2021-04-04] MEDS: 0.9%NACL 1000ML 1,000 ML IV SCH ×4 (04:30→21:13)
[2021-04-04] MEDS: LINEZOLID 600 MG/ISO-OSM 300 ML IV SCH ×2 (04:35→16:47)
[2021-04-04] MEDS: ZOSYN 3.375GM +NS 50ML IV SCH ×3 (05:40→21:13)
[2021-04-04] MEDS: DiphenhydrAMINE HCL 50 MG/ML VIAL IV PRN ×2 (08:59→21:13)
[2021-04-04] MEDS ORDERED: ALPRAZOLAM 1 MG TAB PO PRN (10:00)
[2021-04-04] MEDS: FENTANYL 100 MCG/HR PATCH TD SCH (10:45)
[2021-04-04] MEDS ORDERED: LIDOCAINE PF 100MG/5ML (2%) SYRINGE 5ML ONE (16:55)
[2021-04-04] MEDS ORDERED: SUCCINYLCHOLINE CHLORIDE 20 MG/ML 10 ML VIAL ONE (16:55)
[2021-04-04] MEDS ORDERED: DEXAMETHASONE SOD PHOSPHATE 10MG/ML 1ML VIAL ONE (16:55)
[2021-04-04] MEDS ORDERED: MIDAZOLAM HCL 1 MG/ML 2ML VIAL ONE (16:56)
[2021-04-04] MEDS ORDERED: GLYCOPYRROLATE 1 MG/5 ML SYRINGE ONE (16:56)
[2021-04-04] MEDS ORDERED: ONDANSETRON 4MG INJ ONE (16:56)
[2021-04-04] MEDS ORDERED: PROPOFOL 10 MG/ML 20ML VIAL IV ONE (16:56)
[2021-04-04] MEDS ORDERED: NEOSTIGMINE 5MG/5ML SYR IV ONE (16:56)
[2021-04-04] MEDS ORDERED: ROCURONIUM 10MG/1ML SYR 10 MG/ML ML ONE (16:57)
[2021-04-04] MEDS ORDERED: FENTANYL CITRATE PF 50 MCG/1 ML 2ML VIAL ONE (16:58)
[2021-04-04] MEDS ORDERED: MEPERIDINE-PF 25 MG/ML SYG ONE (18:11)
[2021-04-04] MEDS ORDERED: ACETAMINOPHEN WITH CODEINE 1 TAB TAB PO PRN (21:00)
[2021-04-05] VITALS (7 sets, daily range): BP systolic 83–108; BP diastolic 52–65
[2021-04-05] MEDS: HYDROMORPHONE 1 MG INJ IVP PRN ×5 (03:39→21:33)
[2021-04-05] MEDS: LINEZOLID 600 MG/ISO-OSM 300 ML IV SCH ×2 (03:39→16:59)
[2021-04-05 05:11] LABS: HEMATOCRIT 34.6 % (42-54); MEAN CORPUSCULAR HEMOGLOBIN 31.9 pg (27.0-33.0); MEAN CORPUSCULAR HGB CONC 32.1 g/dL (32.0-36.0); MEAN CORPUSCULAR VOLUME 99.4 fL (79-99); RED BLOOD CELL COUNT(AUTO) 3.48 MIL/uL (4.50-6.20); RED CELL DISTRIBUTION WIDTH 13.2 % (11.0-15.5); WHITE BLOOD COUNT (AUTO) 5.3 K/uL (4.8-10.8)
[2021-04-05] MEDS: ZOSYN 3.375GM +NS 50ML IV SCH ×3 (05:16→20:19)
[2021-04-05 05:24] LABS: POTASSIUM 5.2 mmol/L (3.5-5.1)
[2021-04-05] MEDS: DiphenhydrAMINE HCL 50 MG/ML VIAL IV PRN ×4 (08:17→23:58)
[2021-04-05] MEDS: TENOFOVIR ALAFENAMIDE PO SCH (09:00)
[2021-04-05] MEDS: EMTRICITABINE PO SCH (09:00)
[2021-04-05] MEDS: BICTEGRAVIR PO SCH (09:00)
[2021-04-05] MEDS: 0.9%NACL 1000ML 1,000 ML IV SCH ×3 (09:16→20:19)
[2021-04-05] MEDS: ONDANSETRON 4MG INJ IVP PRN (10:09)
[2021-04-06] VITALS: BP 132/72
[2021-04-06] MEDS: HYDROMORPHONE 1 MG INJ IVP PRN ×5 (02:08→21:18)
[2021-04-06 04:00] VITALS: BP 126/79
[2021-04-06] MEDS: LINEZOLID 600 MG/ISO-OSM 300 ML IV SCH ×2 (04:48→16:23)
[2021-04-06] MEDS: ZOSYN 3.375GM +NS 50ML IV SCH ×3 (04:48→20:10)
[2021-04-06] MEDS: 0.9%NACL 1000ML 1,000 ML IV SCH ×2 (05:33→16:17)
[2021-04-06] MEDS: DiphenhydrAMINE HCL 50 MG/ML VIAL IV PRN ×3 (06:26→18:54)
[2021-04-06 08:00] VITALS: BP 91/54
[2021-04-06] MEDS: ONDANSETRON 4MG INJ IVP PRN (08:04)
[2021-04-06] MEDS: BICTEGRAVIR PO SCH (09:00)
[2021-04-06] MEDS: TENOFOVIR ALAFENAMIDE PO SCH (09:00)
[2021-04-06] MEDS: EMTRICITABINE PO SCH (09:00)
[2021-04-06 12:00] VITALS: BP 136/78
[2021-04-06 16:00] VITALS: BP 132/75
[2021-04-06] MEDS: OXYCODONE HCL 30 MG TABLET PO PRN (18:53)
[2021-04-06 19:00] VITALS: BP 151/70
[2021-04-07] VITALS: BP 136/81
[2021-04-07] MEDS: 0.9%NACL 1000ML 1,000 ML IV SCH ×3 (01:30→22:30)
[2021-04-07] MEDS: DiphenhydrAMINE HCL 50 MG/ML VIAL IV PRN ×5 (02:30→20:36)
[2021-04-07] MEDS: HYDROMORPHONE 1 MG INJ IVP PRN ×3 (02:31→11:54)
[2021-04-07 04:00] VITALS: BP 132/75
[2021-04-07] MEDS: ZOSYN 3.375GM +NS 50ML IV SCH ×3 (04:32→20:35)
[2021-04-07] MEDS: LINEZOLID 600 MG/ISO-OSM 300 ML IV SCH ×2 (04:32→16:39)
[2021-04-07 07:10] VITALS: BP 115/66
[2021-04-07] MEDS: BICTEGRAVIR PO SCH (09:00)
[2021-04-07] MEDS: EMTRICITABINE PO SCH (09:00)
[2021-04-07] MEDS: TENOFOVIR ALAFENAMIDE PO SCH (09:00)
[2021-04-07] MEDS: FENTANYL 100 MCG/HR PATCH TD SCH ×2 (10:00→23:20)
[2021-04-07 12:00] VITALS: BP 150/90
[2021-04-07 16:00] VITALS: BP 184/133
[2021-04-07] MEDS: OXYCODONE HCL 30 MG TABLET PO PRN ×2 (18:51→23:19)
[2021-04-07] MEDS: ACETAMINOPHEN 325 MG TAB PO PRN (21:10)
[2021-04-07 21:21] VITALS: BP 157/95
[2021-04-08 00:04] VITALS: BP 117/64
[2021-04-08] MEDS: DiphenhydrAMINE HCL 50 MG/ML VIAL IV PRN ×3 (03:12→20:58)
[2021-04-08] MEDS: OXYCODONE HCL 30 MG TABLET PO PRN ×3 (03:13→20:57)
[2021-04-08] MEDS: ZOSYN 3.375GM +NS 50ML IV SCH ×3 (04:02→20:57)
[2021-04-08 05:01] VITALS: BP 141/79
[2021-04-08] MEDS: LINEZOLID 600 MG/ISO-OSM 300 ML IV SCH ×2 (05:42→16:15)
[2021-04-08 08:34] VITALS: BP 146/67
[2021-04-08] MEDS: TENOFOVIR ALAFENAMIDE PO SCH (09:00)
[2021-04-08] MEDS: EMTRICITABINE PO SCH (09:00)
[2021-04-08] MEDS: BICTEGRAVIR PO SCH (09:00)
[2021-04-08 11:49] VITALS: BP 128/78
[2021-04-08] MEDS: ONDANSETRON 4MG INJ IVP PRN ×2 (15:05→18:42)
[2021-04-08] MEDS ORDERED: HYDROMORPHONE 0.5 MG SYG (0.5MG/0.5ML) IVP SCH (16:00)
[2021-04-08 16:20] VITALS: BP 138/76
[2021-04-08 20:08] VITALS: BP 149/84
[2021-04-08] MEDS: 0.9%NACL 1000ML 1,000 ML IV SCH (20:57)
[2021-04-08] MEDS ORDERED: HYDROMORPHONE 1 MG INJ ONE (22:59)
[2021-04-09 00:08] VITALS: BP 152/70
[2021-04-09] MEDS ORDERED: HYDROMORPHONE 1 MG INJ ONE ×5 (03:50→23:46)
[2021-04-09] MEDS: DiphenhydrAMINE HCL 50 MG/ML VIAL IV PRN ×3 (03:56→16:53)
[2021-04-09] MEDS: ZOSYN 3.375GM +NS 50ML IV SCH ×3 (03:56→19:41)
[2021-04-09] MEDS: LINEZOLID 600 MG/ISO-OSM 300 ML IV SCH ×2 (03:56→16:53)
[2021-04-09] MEDS: 0.9%NACL 1000ML 1,000 ML IV SCH ×3 (04:07→23:30)
[2021-04-09 04:08] VITALS: BP 124/72
[2021-04-09 08:00] VITALS: BP 123/73
[2021-04-09] MEDS: EMTRICITABINE PO SCH (09:00)
[2021-04-09] MEDS: TENOFOVIR ALAFENAMIDE PO SCH (09:00)
[2021-04-09] MEDS: BICTEGRAVIR PO SCH (09:00)
[2021-04-09] MEDS: ONDANSETRON 4MG INJ IVP PRN ×2 (09:11→15:25)
[2021-04-09] MEDS: HYDROMORPHONE 0.5 MG SYG (0.5MG/0.5ML) IVP PRN (09:11)
[2021-04-09] MEDS: ACETAMINOPHEN 325 MG TAB PO PRN (09:12)
[2021-04-09 12:00] VITALS: BP 118/61
[2021-04-09 16:00] VITALS: BP 114/69
[2021-04-09 20:04] VITALS: BP 117/70
[2021-04-10] VITALS (7 sets, daily range): BP systolic 114–141; BP diastolic 35–88
[2021-04-10] MEDS: DiphenhydrAMINE HCL 50 MG/ML VIAL IV PRN ×4 (02:30→23:20)
[2021-04-10] MEDS: ZOSYN 3.375GM +NS 50ML IV SCH ×3 (03:32→19:56)
[2021-04-10] MEDS: LINEZOLID 600 MG/ISO-OSM 300 ML IV SCH ×2 (03:32→15:40)
[2021-04-10] MEDS ORDERED: HYDROMORPHONE 1 MG INJ ONE ×2 (04:54→10:04)
[2021-04-10] MEDS: TENOFOVIR ALAFENAMIDE PO SCH (09:00)
[2021-04-10] MEDS: EMTRICITABINE PO SCH (09:00)
[2021-04-10] MEDS: BICTEGRAVIR PO SCH (09:00)
[2021-04-10] MEDS: ONDANSETRON 4MG INJ IVP PRN (10:12)
[2021-04-10] MEDS: 0.9%NACL 1000ML 1,000 ML IV SCH ×2 (11:08→19:43)
[2021-04-10] MEDS: HYDROMORPHONE 0.5 MG SYG (0.5MG/0.5ML) IVP PRN ×2 (15:40→19:57)
[2021-04-11] MEDS: HYDROMORPHONE 0.5 MG SYG (0.5MG/0.5ML) IVP PRN ×3 (00:47→09:16)
[2021-04-11] MEDS: 0.9%NACL 1000ML 1,000 ML IV SCH ×2 (01:22→06:05)
[2021-04-11] MEDS: ZOSYN 3.375GM +NS 50ML IV SCH ×2 (03:55→11:39)
[2021-04-11] MEDS: LINEZOLID 600 MG/ISO-OSM 300 ML IV SCH (03:55)
[2021-04-11 04:19] VITALS: BP 105/39
[2021-04-11 08:00] VITALS: BP 180/94
[2021-04-11] MEDS: EMTRICITABINE PO SCH (09:00)
[2021-04-11] MEDS: BICTEGRAVIR PO SCH (09:00)
[2021-04-11] MEDS: TENOFOVIR ALAFENAMIDE PO SCH (09:00)
[2021-04-11] MEDS: DiphenhydrAMINE HCL 50 MG/ML VIAL IV PRN (11:38)
== END 2021-04-11 14:24 | disposition home health service (06) | DRG 975 ==
LOC: EDH 11:26 → EDHIP 11:27 → 4AH 17:09 → 4CH 17:59
PROVIDERS: ADMIT Internal Medicine Hematology & Oncology; ATTEND Internal Medicine Hematology & Oncology
PROC: 0HDAXZZ Extraction of Inguinal Skin, External Approach (ICD-10-PCS; principal; 2021-04-04 17:56)
DX: A41.9 Sepsis, unspecified organism (principal); B20 Human immunodeficiency virus [HIV] disease; C81.90 Hodgkin lymphoma, unspecified, unspecified site; C85.90 Non-Hodgkin lymphoma, unspecified, unspecified site; R64 Cachexia; Z94.84 Stem cells transplant status; G89.29 Other chronic pain; N49.2 Inflammatory disorders of scrotum; B95.62 Methicillin resistant Staphylococcus aureus infection as the cause of diseases classified elsewhere; F12.90 Cannabis use, unspecified, uncomplicated; Z20.822 Contact with and (suspected) exposure to COVID-19; Z68.24 Body mass index [BMI] 24.0-24.9, adult; Z88.5 Allergy status to narcotic agent; Z91.013 Allergy to seafood; Z91.018 Allergy to other foods; Z88.8 Allergy status to other drugs, medicaments and biological substances
CPT/HCPCS: 36415; 74176; 76770; 76870; 80048; 80053; 80305; 81001; 82948; 85025; 85027; 85610; 85730; 87040; 87070; 87076; 87077; 87186; 87205; 87635; A4344; G0378; J0330; J1100; J1170; J1200; J2001; J2020; J2175; J2250; J2405; J2543; J2704; J2710; J3010; J3490; J7030

== ENCOUNTER 2021-10-24 04:10 | Inpatient (IN) | payer OTHER, MEDICARE ==
[~2021-10-24] VITALS: Ht 160 cm; Wt 72.5 kg
[~2021-10-24 04:10] MED LIST changes: -BUTA1CAP53 PO
[2021-10-24] MEDS ORDERED: ACETAMINOPHEN 500 MG TABLET PO ONE (04:30)
[2021-10-24] MEDS ORDERED: ONDANSETRON 4MG INJ IVP ONE (04:30)
[2021-10-24] MEDS ORDERED: 0.9%NACL 1000ML 1,000 ML IV ONE ×2 (04:30→06:30)
[2021-10-24 04:49] LABS: ABG BASE EXCESS -3.6 mmol/L (-2.0-3.0); ABG HCO3 18.3 mmol/L (21.0-28.0); ABG OXYGEN SATURATION 95.4 % (95.0-99.0); ABG PCO2 26 mmHg (35-48)
[2021-10-24 04:58] LABS: BASOPHILS % (AUTO) 0.3 % (0.0-5.0); EOSINOPHILS % (AUTO) 0.1 % (0.0-8.0); LYMPHOCYTES % (AUTO) 14.2 % (21.0-51.0); MEAN CORPUSCULAR HEMOGLOBIN 31.2 pg (27.0-33.0); MEAN CORPUSCULAR HGB CONC 33.5 g/dL (32.0-36.0); MEAN CORPUSCULAR VOLUME 93.1 fL (79-99); MONOCYTES % (AUTO) 7.6 % (3.0-13.0); NEUTROPHILS % (AUTO) 77.4 % (40.0-77.0); PLATELET COUNT (AUTO) 159 K/uL (130-400); RED BLOOD CELL COUNT(AUTO) 4.62 MIL/uL (4.50-6.20); RED CELL DISTRIBUTION WIDTH 13.7 % (11.0-15.5); WHITE BLOOD COUNT (AUTO) 10.5 K/uL (4.8-10.8)
[2021-10-24 05:34] LABS: ALBUMIN 4.2 g/dL (3.5-5.0); CREATININE 2.3 mg/dL (0.5-1.5); POTASSIUM 5.1 mmol/L (3.5-5.1); TOTAL PROTEIN, SERUM 8.3 g/dL (6.0-8.3)
[2021-10-24] MEDS ORDERED: ZOSYN 3.375GM +NS 50ML IV SCH (06:00)
[2021-10-24 06:13] LABS: B-TYPE NATRIURETIC PEPTIDE 34 pg/mL (0-100)
[2021-10-24 07:01] LABS: APPEARANCE,URINE CLEAR (CLEAR); BILIRUBIN,URINE NEGATIVE (NEGATIVE); COLOR,URINE YELLOW (YELLOW); GLUCOSE, URINE (UA) NEGATIVE (NEGATIVE); KETONES,URINE NEGATIVE (NEGATIVE); LEUKOCYTE ESTERASE ,URINE NEGATIVE (NEGATIVE); NITRATE,URINE NEGATIVE (NEGATIVE); OCCULT BLOOD,URINE SMALL (NEGATIVE); PH,URINE 5.5 (5.0-8.0); PROTEIN,URINE NEGATIVE (NEGATIVE); UROBILINOGEN,URINE 0.2 mg/dL (0.2-1.0)
[2021-10-24 07:10] LABS: AMPHET/METH SCREEN,URINE POSITIVE (NEGATIVE); BENZODIAZEPINES SCREEN,URINE NEGATIVE (NEGATIVE); CANNABINOID SCREEN,URINE NEGATIVE (NEGATIVE); COCAINE SCREEN,URINE NEGATIVE (NEGATIVE); PHENCYCLIDINE SCREEN,URINE NEGATIVE (NEGATIVE)
[2021-10-24 07:14] LABS: BACTERIA,URINE Few /HPF (None Seen); RBC,URINE None Seen /HPF (0-1); WBC,URINE None Seen /HPF (0-1)
[2021-10-24 07:15] LABS: SQUAMOUS EPITHELIAL CELL,UR 0-2 /HPF (0-2)
[2021-10-24] MEDS ORDERED: FENTANYL CITRATE PF 50 MCG/1 ML 2ML VIAL IVP ONE (07:30)
[2021-10-24] MEDS ORDERED: 0.9%NACL 1000ML 2,052 ML IV ONE (08:00)
[2021-10-24] MEDS ORDERED: HYDROMORPHONE 1 MG INJ ONE (08:29)
[2021-10-24 09:52] VITALS: BP 101/68
[2021-10-24] MEDS: 0.9%NACL 1000ML 1,000 ML IV SCH ×2 (09:55→18:00)
[2021-10-24] MEDS: ACETAMINOPHEN 325 MG TAB PO PRN ×2 (10:58→17:44)
[2021-10-24] MEDS: HYDROMORPHONE 1 MG INJ IVP PRN ×3 (10:59→20:55)
[2021-10-24 12:01] VITALS: BP 94/66
[2021-10-24] MEDS ORDERED: LIDOCAINE HCL 2% JELLY 5 ML TP SCH (13:00)
[2021-10-24] MEDS: ONDANSETRON 4MG INJ IVP PRN ×2 (15:33→21:55)
[2021-10-24] MEDS: ZOSYN 3.375GM +NS 50ML IV SCH ×2 (15:34→22:50)
[2021-10-24 16:57] VITALS: BP 85/50
[2021-10-24 20:11] VITALS: BP 86/55
[2021-10-24] MEDS: LOPERAMIDE HCL 2 MG CAP PO PRN (21:55)
[2021-10-24] MEDS: DiphenhydrAMINE HCL 50 MG/ML VIAL IV PRN (21:56)
[2021-10-25] MEDS: ACETAMINOPHEN 325 MG TAB PO PRN (02:48)
[2021-10-25] MEDS: HYDROMORPHONE 1 MG INJ IVP PRN ×4 (02:49→20:19)
[2021-10-25 03:48] VITALS: BP 131/86
[2021-10-25] MEDS: 0.9%NACL 1000ML 1,000 ML IV SCH ×2 (04:00→15:53)
[2021-10-25] MEDS: ZOSYN 3.375GM +NS 50ML IV SCH ×3 (05:30→22:22)
[2021-10-25] MEDS: LOPERAMIDE HCL 2 MG CAP PO PRN ×5 (05:31→22:58)
[2021-10-25 08:00] VITALS: BP 86/57
[2021-10-25] MEDS: ONDANSETRON 4MG INJ IVP PRN (09:04)
[2021-10-25] MEDS: DiphenhydrAMINE HCL 50 MG/ML VIAL IV PRN ×3 (09:04→23:17)
[2021-10-25 12:00] VITALS: BP 85/38
[2021-10-25 13:03] LABS: CREATININE 2.7 mg/dL (0.5-1.5)
[2021-10-25] MEDS: FENTANYL 100 MCG/HR PATCH TD SCH (15:37)
[2021-10-25] MEDS: DIPHENOXYLATE HCL/ATROPINE 2.5/0.025 MG TAB PO PRN (15:38)
[2021-10-25 16:00] VITALS: BP 106/57
[2021-10-25] MEDS: OXYCODONE HCL 30 MG TABLET PO PRN ×2 (16:28→22:59)
[2021-10-25 20:22] VITALS: BP 100/58
[2021-10-25 23:35] VITALS: BP 99/62
[2021-10-26 03:54] VITALS: BP 97/61
[2021-10-26] MEDS: ONDANSETRON 4MG INJ IVP PRN ×3 (04:19→22:27)
[2021-10-26] MEDS: LOPERAMIDE HCL 2 MG CAP PO PRN (04:19)
[2021-10-26] MEDS: HYDROMORPHONE 1 MG INJ IVP PRN ×4 (04:20→23:22)
[2021-10-26 04:48] LABS: HEMATOCRIT 34.2 % (42-54); MEAN CORPUSCULAR HEMOGLOBIN 30.4 pg (27.0-33.0); MEAN CORPUSCULAR HGB CONC 31.9 g/dL (32.0-36.0); MEAN CORPUSCULAR VOLUME 95.3 fL (79-99); RED BLOOD CELL COUNT(AUTO) 3.59 MIL/uL (4.50-6.20); RED CELL DISTRIBUTION WIDTH 14.1 % (11.0-15.5); WHITE BLOOD COUNT (AUTO) 3.9 K/uL (4.8-10.8)
[2021-10-26 05:03] LABS: CREATININE 2.5 mg/dL (0.5-1.5); POTASSIUM 3.8 mmol/L (3.5-5.1)
[2021-10-26] MEDS: ZOSYN 3.375GM +NS 50ML IV SCH ×3 (07:30→22:05)
[2021-10-26 08:00] VITALS: BP 91/64
[2021-10-26 12:00] VITALS: BP 95/50
[2021-10-26] MEDS: DiphenhydrAMINE HCL 50 MG/ML VIAL IV PRN ×2 (12:21→19:53)
[2021-10-26 16:00] VITALS: BP 103/61
[2021-10-26 18:09] LABS: OPIATES SCREEN URINE Positive ng/mL (Cutoff=300)
[2021-10-26] MEDS: OXYCODONE HCL 30 MG TABLET PO PRN (18:21)
[2021-10-26] MEDS: 0.9%NACL 1000ML 1,000 ML IV SCH ×2 (18:22→20:00)
[2021-10-26 19:00] VITALS: BP 105/64
[2021-10-27] VITALS: BP 97/55
[2021-10-27] MEDS: LOPERAMIDE HCL 2 MG CAP PO PRN ×2 (02:00→22:42)
[2021-10-27] MEDS: DiphenhydrAMINE HCL 50 MG/ML VIAL IV PRN ×2 (02:06→18:32)
[2021-10-27] MEDS: 0.9%NACL 1000ML 1,000 ML IV SCH ×2 (03:54→16:13)
[2021-10-27 04:00] VITALS: BP 98/54
[2021-10-27 04:35] LABS: BASOPHILS % (AUTO) 0.6 % (0.0-5.0); EOSINOPHILS % (AUTO) 1.4 % (0.0-8.0); HEMATOCRIT 28.1 % (42-54); LYMPHOCYTES % (AUTO) 36.4 % (21.0-51.0); MEAN CORPUSCULAR HEMOGLOBIN 30.8 pg (27.0-33.0); MEAN CORPUSCULAR HGB CONC 32.4 g/dL (32.0-36.0); MEAN CORPUSCULAR VOLUME 95.3 fL (79-99); MONOCYTES % (AUTO) 8.6 % (3.0-13.0); NEUTROPHILS % (AUTO) 51.9 % (40.0-77.0); PLATELET COUNT (AUTO) 109 K/uL (130-400); RED BLOOD CELL COUNT(AUTO) 2.95 MIL/uL (4.50-6.20); RED CELL DISTRIBUTION WIDTH 14.2 % (11.0-15.5); WHITE BLOOD COUNT (AUTO) 3.5 K/uL (4.8-10.8)
[2021-10-27 04:42] LABS: CREATININE 2.2 mg/dL (0.5-1.5); POTASSIUM 3.6 mmol/L (3.5-5.1)
[2021-10-27] MEDS: ZOSYN 3.375GM +NS 50ML IV SCH ×3 (06:43→22:00)
[2021-10-27 08:00] VITALS: BP 110/73
[2021-10-27] MEDS: HYDROMORPHONE 1 MG INJ IVP PRN ×3 (08:19→18:32)
[2021-10-27] MEDS: ONDANSETRON 4MG INJ IVP PRN ×3 (08:20→20:55)
[2021-10-27 12:00] VITALS: BP 91/60
[2021-10-27] MEDS: DIPHENOXYLATE HCL/ATROPINE 2.5/0.025 MG TAB PO PRN (14:13)
[2021-10-27 16:00] VITALS: BP 91/61
[2021-10-27 20:10] VITALS: BP 101/63
[2021-10-27] MEDS: OXYCODONE HCL 30 MG TABLET PO PRN (20:57)
[2021-10-28] MEDS: DIPHENOXYLATE HCL/ATROPINE 2.5/0.025 MG TAB PO PRN (00:14)
[2021-10-28 00:19] VITALS: BP 141/83
[2021-10-28] MEDS: HYDROMORPHONE 1 MG INJ IVP PRN ×4 (01:51→22:54)
[2021-10-28] MEDS: 0.9%NACL 1000ML 1,000 ML IV SCH ×3 (02:00→22:00)
[2021-10-28] MEDS: DiphenhydrAMINE HCL 50 MG/ML VIAL IV PRN ×4 (02:01→22:52)
[2021-10-28 04:12] LABS: BASOPHILS % (AUTO) 0.6 % (0.0-5.0); HEMATOCRIT 35.3 % (42-54); LYMPHOCYTES % (AUTO) 31.4 % (21.0-51.0); MEAN CORPUSCULAR HEMOGLOBIN 30.8 pg (27.0-33.0); MEAN CORPUSCULAR HGB CONC 32.3 g/dL (32.0-36.0); MEAN CORPUSCULAR VOLUME 95.4 fL (79-99); MONOCYTES % (AUTO) 8.8 % (3.0-13.0); NEUTROPHILS % (AUTO) 55.4 % (40.0-77.0); PLATELET COUNT (AUTO) 165 K/uL (130-400); RED CELL DISTRIBUTION WIDTH 14.1 % (11.0-15.5)
[2021-10-28 04:21] LABS: CREATININE 2.2 mg/dL (0.5-1.5); POTASSIUM 3.7 mmol/L (3.5-5.1)
[2021-10-28 04:36] VITALS: BP 120/69
[2021-10-28] MEDS: ZOSYN 3.375GM +NS 50ML IV SCH ×3 (05:25→22:02)
[2021-10-28 08:09] VITALS: BP 117/77
[2021-10-28] MEDS: ONDANSETRON 4MG INJ IVP PRN ×3 (09:11→22:52)
[2021-10-28] MEDS: OXYCODONE HCL 30 MG TABLET PO PRN (10:29)
[2021-10-28 16:08] VITALS: BP 116/79
[2021-10-28] MEDS: FENTANYL 100 MCG/HR PATCH TD SCH (17:37)
[2021-10-28 20:05] VITALS: BP 139/88
[2021-10-28 23:45] VITALS: BP 135/86
[2021-10-29] MEDS: OXYCODONE HCL 30 MG TABLET PO PRN ×3 (02:45→20:28)
[2021-10-29 04:15] VITALS: BP 137/79
[2021-10-29] MEDS: ZOSYN 3.375GM +NS 50ML IV SCH ×3 (05:44→20:28)
[2021-10-29 07:56] VITALS: BP 118/71
[2021-10-29] MEDS: 0.9%NACL 1000ML 1,000 ML IV SCH ×2 (08:00→18:00)
[2021-10-29] MEDS: HYDROMORPHONE 1 MG INJ IVP PRN ×2 (08:40→17:10)
[2021-10-29] MEDS: DiphenhydrAMINE HCL 50 MG/ML VIAL IV PRN ×2 (08:40→17:10)
[2021-10-29] MEDS: ONDANSETRON 4MG INJ IVP PRN ×2 (08:40→17:10)
[2021-10-29 11:36] VITALS: BP 118/81
[2021-10-29 16:21] VITALS: BP 105/80
[2021-10-29 21:00] VITALS: BP 146/89
[2021-10-29 23:33] VITALS: BP 121/81
[2021-10-30] MEDS: 0.9%NACL 1000ML 1,000 ML IV SCH (04:00)
[2021-10-30] MEDS: ZOSYN 3.375GM +NS 50ML IV SCH (04:11)
[2021-10-30] MEDS: ONDANSETRON 4MG INJ IVP PRN ×2 (04:12→11:35)
[2021-10-30] MEDS: DiphenhydrAMINE HCL 50 MG/ML VIAL IV PRN ×2 (04:12→11:36)
[2021-10-30] MEDS: HYDROMORPHONE 1 MG INJ IVP PRN ×2 (04:21→11:37)
[2021-10-30 04:23] VITALS: BP 112/88
[2021-10-30 08:00] VITALS: BP 134/79
[2021-10-30 11:44] VITALS: BP 132/86
== END 2021-10-30 15:59 | disposition home or self-care (01) | DRG 975 ==
LOC: EDH 04:10 → OBSVTOIN 07:33 → EDHIP 07:33 → INTOOBSV 07:33 → 4AH 09:15
PROVIDERS: ADMIT Internal Medicine Hematology & Oncology; ATTEND Internal Medicine Hematology & Oncology
PROC: 0Y910ZZ Drainage of Left Buttock, Open Approach (ICD-10-PCS; principal; 2021-10-24)
DX: A41.9 Sepsis, unspecified organism (principal); B20 Human immunodeficiency virus [HIV] disease; C81.90 Hodgkin lymphoma, unspecified, unspecified site; J18.9 Pneumonia, unspecified organism; L02.31 Cutaneous abscess of buttock; F11.20 Opioid dependence, uncomplicated; Z94.84 Stem cells transplant status; N17.9 Acute kidney failure, unspecified; L03.317 Cellulitis of buttock; Z20.822 Contact with and (suspected) exposure to COVID-19; E11.22 Type 2 diabetes mellitus with diabetic chronic kidney disease; N18.9 Chronic kidney disease, unspecified; E78.00 Pure hypercholesterolemia, unspecified; G89.4 Chronic pain syndrome; I12.9 Hypertensive chronic kidney disease with stage 1 through stage 4 chronic kidney disease, or unspecified chronic kidney disease; Z85.72 Personal history of non-Hodgkin lymphomas
CPT/HCPCS: 36415; 36600; 71045; 74176; 80048; 80053; 80305; 81001; 82550; 82803; 82948; 83605; 83880; 84145; 84484; 85025; 85027; 87040; 87324; 87635; 87804; 93005; 93970; C9803; G0378; J1170; J1200; J2405; J2543; J7030; Q0161

== ENCOUNTER 2021-12-06 18:03 | Inpatient (IN) | payer OTHER, MEDICARE ==
[~2021-12-06] VITALS: Ht 170.2 cm; Wt 68.7 kg
[~2021-12-06 18:03] MED LIST changes: +CHLO25TA68 PO
[2021-12-06] MEDS ORDERED: HYDROMORPHONE 1 MG INJ ONE (18:40)
[2021-12-06] MEDS ORDERED: HYDROMORPHONE 1 MG INJ IM ONE (18:45)
[2021-12-06 19:15] LABS: BASOPHILS % (AUTO) 0.2 % (0.0-5.0); EOSINOPHILS % (AUTO) 0.2 % (0.0-8.0); HEMATOCRIT 47.5 % (42-54); LYMPHOCYTES % (AUTO) 5.6 % (21.0-51.0); MEAN CORPUSCULAR HEMOGLOBIN 30.1 pg (27.0-33.0); MEAN CORPUSCULAR HGB CONC 33.1 g/dL (32.0-36.0); MEAN CORPUSCULAR VOLUME 91.2 fL (79-99); MONOCYTES % (AUTO) 5.9 % (3.0-13.0); NEUTROPHILS % (AUTO) 87.7 % (40.0-77.0); PLATELET COUNT (AUTO) 287 K/uL (130-400); RED BLOOD CELL COUNT(AUTO) 5.21 MIL/uL (4.50-6.20); RED CELL DISTRIBUTION WIDTH 13.8 % (11.0-15.5); WHITE BLOOD COUNT (AUTO) 16.5 K/uL (4.8-10.8)
[2021-12-06 19:26] LABS: CREATININE 2.3 mg/dL (0.5-1.5); POTASSIUM 3.8 mmol/L (3.5-5.1)
[2021-12-06] MEDS ORDERED: ONDANSETRON 4MG INJ IVP ONE (19:30)
[2021-12-06] MEDS ORDERED: 0.9%NACL 1000ML 1,000 ML IV ONE ×2 (19:30→20:30)
[2021-12-06] MEDS ORDERED: HYDROMORPHONE 1 MG INJ IVP ONE (19:30)
[2021-12-06 19:32] LABS: INR 0.95 (0.85-1.15); PROTHROMBIN TIME 10.4 SEC (9.6-11.6)
[2021-12-06 19:32] LABS: APPEARANCE,URINE CLEAR (CLEAR); BILIRUBIN,URINE NEGATIVE (NEGATIVE); COLOR,URINE YELLOW (YELLOW); GLUCOSE, URINE (UA) NEGATIVE (NEGATIVE); KETONES,URINE 5 mg/dL (NEGATIVE); LEUKOCYTE ESTERASE ,URINE NEGATIVE Leu/uL (NEGATIVE); NITRATE,URINE NEGATIVE (NEGATIVE); OCCULT BLOOD,URINE NEGATIVE (NEGATIVE); PROTEIN,URINE 10 mg/dL (NEGATIVE)
[2021-12-06 19:33] LABS: PARTIAL THROMBOPLASTIN TIME 27.6 SEC (26.3-35.5)
[2021-12-06 19:39] LABS: ALBUMIN 4.7 g/dL (3.5-5.0); TOTAL PROTEIN, SERUM 9.3 g/dL (6.0-8.3)
[2021-12-06 19:42] LABS: AMPHET/METH SCREEN,URINE POSITIVE (NEGATIVE); BARBITURATE SCREEN, URINE NEGATIVE (NEGATIVE); BENZODIAZEPINES SCREEN,URINE NEGATIVE (NEGATIVE); CANNABINOID SCREEN,URINE NEGATIVE (NEGATIVE); COCAINE SCREEN,URINE NEGATIVE (NEGATIVE); PHENCYCLIDINE SCREEN,URINE NEGATIVE (NEGATIVE)
[2021-12-06 19:51] LABS: BACTERIA,URINE RARE /HPF (None Seen); MUCUS,URINE RARE LPF (None Seen); RBC,URINE 0-1 /HPF (0-1)
[2021-12-06] MEDS ORDERED: ZOSYN 3.375GM +NS 50ML IV ONE (20:30)
[2021-12-06] MEDS: ZOSYN 3.375GM +NS 50ML IV SCH (20:44)
[2021-12-06] MEDS: 0.9%NACL 1000ML 1,000 ML IV SCH (22:01)
[2021-12-06 23:00] VITALS: BP 121/84
[2021-12-07] VITALS (7 sets, daily range): BP systolic 99–131; BP diastolic 58–70
[2021-12-07] MEDS: HYDROMORPHONE 1 MG INJ IVP PRN ×5 (00:47→23:54)
[2021-12-07] MEDS: ONDANSETRON 4MG INJ IVP PRN ×3 (02:13→19:38)
[2021-12-07] MEDS: ZOSYN 3.375GM +NS 50ML IV SCH ×3 (04:17→19:38)
[2021-12-07] MEDS: 0.9%NACL 1000ML 1,000 ML IV SCH ×4 (04:26→21:04)
[2021-12-07] MEDS ORDERED: DIPH25CA85 PO (06:52)
[2021-12-07] MEDS ORDERED: ALPRAZOLAM 1 MG TAB PO PRN (07:00)
[2021-12-07] MEDS ORDERED: OXYCODONE HCL 30 MG TABLET PO SCH (07:00)
[2021-12-07] MEDS ORDERED: DiphenhydrAMINE HCL 50 MG/ML VIAL IV SCH (07:30)
[2021-12-07 07:40] LABS: BASOPHILS % (AUTO) 0.3 % (0.0-5.0); EOSINOPHILS % (AUTO) 1.8 % (0.0-8.0); HEMATOCRIT 37.2 % (42-54); LYMPHOCYTES % (AUTO) 34.4 % (21.0-51.0); MEAN CORPUSCULAR HEMOGLOBIN 30.3 pg (27.0-33.0); MEAN CORPUSCULAR HGB CONC 32.5 g/dL (32.0-36.0); MONOCYTES % (AUTO) 5.8 % (3.0-13.0); NEUTROPHILS % (AUTO) 57.3 % (40.0-77.0); PLATELET COUNT (AUTO) 194 K/uL (130-400); RED CELL DISTRIBUTION WIDTH 13.8 % (11.0-15.5); WHITE BLOOD COUNT (AUTO) 7.1 K/uL (4.8-10.8)
[2021-12-07] MEDS: [UNRECOGNIZED DRUG - OTHER] PO SCH (09:00)
[2021-12-07 09:03] LABS: ALBUMIN 3.3 g/dL (3.5-5.0); CREATININE 1.8 mg/dL (0.5-1.5); POTASSIUM 4.2 mmol/L (3.5-5.1); TOTAL PROTEIN, SERUM 6.7 g/dL (6.0-8.3)
[2021-12-07] MEDS: FENTANYL 100 MCG/HR PATCH TD SCH (10:07)
[2021-12-08 04:04] VITALS: BP 109/76
[2021-12-08] MEDS: ZOSYN 3.375GM +NS 50ML IV SCH ×3 (04:11→20:50)
[2021-12-08] MEDS: 0.9%NACL 1000ML 1,000 ML IV SCH ×3 (04:44→17:24)
[2021-12-08] MEDS: HYDROMORPHONE 1 MG INJ IVP PRN ×3 (06:31→22:32)
[2021-12-08] MEDS ORDERED: CHLO10TA19 PO (06:41)
[2021-12-08] MEDS ORDERED: CHLO25TA68 PO (06:41)
[2021-12-08 08:13] VITALS: BP 106/65
[2021-12-08] MEDS: ONDANSETRON 4MG INJ IVP PRN ×2 (09:20→17:18)
[2021-12-08] MEDS: DIPHENHYDRAMINE HCL 25 MG CAPSULE PO PRN ×2 (09:20→20:19)
[2021-12-08] MEDS: [UNRECOGNIZED DRUG - OTHER] PO SCH (09:33)
[2021-12-08 12:14] VITALS: BP 127/69
[2021-12-08] MEDS ORDERED: DiphenhydrAMINE HCL 50 MG/ML VIAL IV ONE ×2 (15:30→20:30)
[2021-12-08 17:06] VITALS: BP 110/71
[2021-12-08 20:05] VITALS: BP 109/64
[2021-12-08] MEDS ORDERED: DiphenhydrAMINE HCL 50 MG/ML VIAL ONE (20:47)
[2021-12-08 23:50] VITALS: BP 109/62
[2021-12-09] MEDS: 0.9%NACL 1000ML 1,000 ML IV SCH ×4 (00:47→21:32)
[2021-12-09] MEDS: ONDANSETRON 4MG INJ IVP PRN ×4 (01:36→23:30)
[2021-12-09] MEDS: HYDROMORPHONE 1 MG INJ IVP PRN ×5 (02:40→21:33)
[2021-12-09 04:13] LABS: HEMATOCRIT 34.1 % (42-54); MEAN CORPUSCULAR HEMOGLOBIN 30.7 pg (27.0-33.0); MEAN CORPUSCULAR HGB CONC 32.3 g/dL (32.0-36.0); MEAN CORPUSCULAR VOLUME 95.3 fL (79-99); RED BLOOD CELL COUNT(AUTO) 3.58 MIL/uL (4.50-6.20); RED CELL DISTRIBUTION WIDTH 13.7 % (11.0-15.5); WHITE BLOOD COUNT (AUTO) 7.4 K/uL (4.8-10.8)
[2021-12-09 04:40] LABS: ALBUMIN 3.4 g/dL (3.5-5.0); CREATININE 1.9 mg/dL (0.5-1.5); POTASSIUM 4.3 mmol/L (3.5-5.1); TOTAL PROTEIN, SERUM 6.9 g/dL (6.0-8.3)
[2021-12-09 04:45] VITALS: BP 110/74
[2021-12-09] MEDS: ZOSYN 3.375GM +NS 50ML IV SCH ×3 (04:49→21:25)
[2021-12-09 08:00] VITALS: BP 136/51
[2021-12-09] MEDS: [UNRECOGNIZED DRUG - OTHER] PO SCH (08:40)
[2021-12-09 12:00] VITALS: BP 110/65
[2021-12-09] MEDS: DiphenhydrAMINE HCL 50 MG/ML VIAL IV PRN ×2 (15:31→21:32)
[2021-12-09 16:00] VITALS: BP 121/82
[2021-12-09 20:17] VITALS: BP 11/69
[2021-12-09 23:32] VITALS: BP 107/71
[2021-12-10] MEDS: 0.9%NACL 1000ML 1,000 ML IV SCH ×3 (01:40→15:00)
[2021-12-10 03:27] VITALS: BP 103/68
[2021-12-10] MEDS: ZOSYN 3.375GM +NS 50ML IV SCH ×3 (04:19→20:46)
[2021-12-10] MEDS: HYDROMORPHONE 1 MG INJ IVP PRN ×5 (04:23→22:38)
[2021-12-10] MEDS: DiphenhydrAMINE HCL 50 MG/ML VIAL IV PRN ×3 (04:26→20:47)
[2021-12-10] MEDS: FENTANYL 100 MCG/HR PATCH TD SCH (06:29)
[2021-12-10 08:00] VITALS: BP 103/68
[2021-12-10] MEDS: [UNRECOGNIZED DRUG - OTHER] PO SCH (09:25)
[2021-12-10 12:00] VITALS: BP 118/77
[2021-12-10 15:54] VITALS: BP 111/62
[2021-12-10] MEDS ORDERED: PANTOPRAZOLE 40 MG TAB DR PO SCH (16:30)
[2021-12-10 19:49] VITALS: BP 119/64
[2021-12-10] MEDS: ONDANSETRON 4MG INJ IVP PRN (22:37)
[2021-12-10 23:30] VITALS: BP 92/50
[2021-12-11] MEDS: 0.9%NACL 1000ML 1,000 ML IV SCH ×2 (00:10→03:33)
[2021-12-11] MEDS: ZOSYN 3.375GM +NS 50ML IV SCH (03:37)
[2021-12-11 03:45] VITALS: BP 99/64
[2021-12-11] MEDS: DiphenhydrAMINE HCL 50 MG/ML VIAL IV PRN (06:09)
[2021-12-11] MEDS: HYDROMORPHONE 1 MG INJ IVP PRN ×2 (06:10→10:07)
[2021-12-11 07:52] VITALS: BP 111/77
[2021-12-11] MEDS: [UNRECOGNIZED DRUG - OTHER] PO SCH (07:56)
[2021-12-11] MEDS ORDERED: PANTOPRAZOLE 40 MG TAB DR PO SCH (09:00)
[2021-12-11] MEDS: ONDANSETRON 4MG INJ IVP PRN (10:06)
[2021-12-11 12:00] VITALS: BP 121/77
== END 2021-12-11 12:40 | disposition home or self-care (01) | DRG 975 ==
LOC: EDH 18:03 → EDHIP 20:25 → 3CH 22:59
PROVIDERS: ADMIT Internal Medicine Hematology & Oncology; ATTEND Internal Medicine Hematology & Oncology
DX: A41.9 Sepsis, unspecified organism (principal); B20 Human immunodeficiency virus [HIV] disease; C81.90 Hodgkin lymphoma, unspecified, unspecified site; N17.9 Acute kidney failure, unspecified; E87.2 Acidosis; Z94.84 Stem cells transplant status; K52.9 Noninfective gastroenteritis and colitis, unspecified; Z20.822 Contact with and (suspected) exposure to COVID-19
CPT/HCPCS: 36415; 71045; 74176; 80053; 80305; 81001; 82550; 83605; 83874; 84484; 85025; 85027; 85610; 85730; 87040; 87635; 87804; 93005; 99291; C9803; G0378; J1170; J1200; J2405; J2543; J7030; Q0163